=== PATIENT | male | born 1945 | race Caucasian/White ===

== ENCOUNTER → 2018-05-27 10:44 | Outpatient (CLI) | payer OTHER, MEDICARE, SELFPAY ==
--- NOTE | 2018-05-27 | DI.US.S_ITS ---
PROCEDURE: US ABD AORTA ANEURYSM SCREEN INDICATIONS: ABDOMINAL AORTIC ANEURYSM TECHNIQUE: Real time scanning was performed of the aorta and iliac arteries, with image documentation. COMPARISON: None. FINDINGS: Aorta: Proximal aortic diameter measures 2.7 cm. Mid-aorta measures 1.9 cm. Distal aortic diameter is 1.7 cm. Iliac arteries: Right common iliac artery measures 1.1 cm. Left common iliac artery measures 1.1 cm. IMPRESSION: No aneurysmal dilation Dictated by: Racheal Junior M.D. on 05/27/2018 at 13:58 Approved by: Racheal Junior M.D. on 05/27/2018 at 13:59
[2018-05-27 14:55] LABS: TSH w/ Reflex to FT4 1.88 uIU/mL (0.47-4.68)
[2018-05-27 16:26] LABS: Hep C Virus Ab w/Reflex Quant NEGATIVE s/c (NEGATIVE)
[2018-05-28 19:57] LABS: Testosterone, Free 0.79 ng/dL
== END ==
PROVIDERS: PCP Family Medicine; Visit Provider Family Medicine
DX: Z13.6 Encounter for screening for cardiovascular disorders (principal); Z11.59 Encounter for screening for other viral diseases; M62.89 Other specified disorders of muscle; N52.9 Male erectile dysfunction, unspecified
CPT/HCPCS: 36415; 76706; 84402; 84403; 84443; 86803

== ENCOUNTER → 2019-03-18 10:50 | Outpatient (CLI) | payer OTHER, SELFPAY ==
--- NOTE | 2019-03-18 | DI.MRI.S_ITS ---
PROCEDURE: MR LUMBAR SPINE WO CON INDICATIONS: Bilateral sciatica TECHNIQUE: Noncontrast sagittal T1 spin echo and T2 fast echo, sagittal STIR, axial T1 and T2 fast spin echo through the lumbar spine. In cases with scoliosis, additional coronal T2 fast spin echo may be performed. COMPARISON: None. FINDINGS: Image quality: Excellent. Alignment and Curvature: There is trace anterolisthesis of T12 on L1, trace retrolisthesis of L1 on L2, L2 on L3, L3 on L4. Bone Marrow: Marrow is of normal overall signal. Minimal reactive endplate changes are present at L2-3, L3-4, L4-5. Schmorl's nodes are noted along the inferior endplates of T11, T12, L2 and L4 with minimal surrounding reactive change at L4. No acute vertebral body compression fractures. Spinal Cord: Conus medullaris terminates at the L1-L2 level. Visualized cord demonstrates normal signal and size. Paraspinous Soft Tissues: No paravertebral masses. Discs: Severe desiccation is present at T12-L1, L1-L2, L2-L3 and moderate throughout the remainder of the lumbar spine. L1-L2: Mild disc bulge with posterior central superimposed protrusion. There is severe spinal stenosis and mild compression of the anterior canal. There is moderate to severe bilateral foraminal narrowing with facet and ligamentum flavum hypertrophy. L2-L3: Mild disc bulge with moderate to severe spinal stenosis. Severe left and moderate to severe right foraminal narrowing with facet and ligamentum flavum hypertrophy. L3-L4: Mild disc bulge with severe spinal stenosis and slight canal compression. There is severe left and moderate right foraminal narrowing with slight flattening of the left nerve root. Facet and ligamentum flavum hypertrophy as well as epidural lipomatosis is present. L4-L5: Mild disc bulge with severe spinal stenosis and flattening of canal. Moderate to severe bilateral foraminal narrowing with facet and ligamentum flavum hypertrophy. Epidural lipomatosis is present. L5-S1: Mild disc bulge with mild spinal stenosis. Moderate to severe left and moderate right foraminal narrowing with facet and ligamentum flavum hypertrophy. IMPRESSION: 1. Multilevel disc bulge including superimposed protrusion at L1-L2. 2. Multilevel spinal stenosis most severe at L3-4 and L4-5 secondary to disc bulge with intervening affective facet/ligamentum flavum arthropathy, epidural lipomatosis as well as retrolisthesis. 3. Multilevel moderate to severe foraminal narrowing secondary to facet/ligamentum flavum hypertrophy. Dictated by: Racheal Junior M.D. on 03/18/2019 at 14:17 Approved by: Racheal Junior M.D. on 03/18/2019 at 14:43
== END ==
PROVIDERS: PCP Family Medicine; Visit Provider Family Medicine
DX: M51.16 Intervertebral disc disorders with radiculopathy, lumbar region (principal); M51.17 Intervertebral disc disorders with radiculopathy, lumbosacral region; M48.061 Spinal stenosis, lumbar region without neurogenic claudication; M48.07 Spinal stenosis, lumbosacral region
CPT/HCPCS: 72148

== ENCOUNTER 2020-04-07 13:09 | Emergency (ER) | payer OTHER, MEDICARE, SELFPAY ==
[2020-04-07] VITALS (30 sets, daily range): BP systolic 119–170; BP diastolic 59–82; PULSE 95–135; RESP 18–39; TEMP 37.9–38.1; O2SAT 87–95; BMI 25.8
--- NOTE | 2020-04-07 13:20 | ED_ITS ---
HPI - Abdominal Pain <Telly Yancey DO - Last Filed: 04/08/20 14:25> General Chief Complaint: Abdominal Pain Stated Complaint: Stomach pain/vomitting/chills Time Seen by Provider: 04/07/20 13:10 Source: patient and family Mode of arrival: Ambulatory Limitations: no limitations History of Present Illness HPI narrative: 74-year-old male former smoker presents with his in the chief complaint severe epigastric pain with 1 episode of vomiting yesterday. He states the day prior he drank a fair amount of IPA and wonders of this triggered his pain. His pain is persistent but he has not vomited any more times. He denies any obvious provocation, palliation or radiation of his discomfort. He states that his last bowel movement was a day or 2 ago but was not normal and produced only small hard stools. Feels a bit bloated but admits to passing gas. He denies any abdominal surgeries. He denies any known history liver disease and has never had any bright red blood in his vomit. He denies any exposure to persons known to have COVID-19. MD complaint: abdominal pain Onset (ago): hour(s) Pain Consistency: constant Location: epigastric Severity: moderate Quality: stabbing Radiation: none Relieving factors: nothing Exacerbating factors: nothing Associated symptoms: nausea and vomiting Related Data Home Medications Medication Instructions Recorded Confirmed acitretin 25 mg PO DAILY 04/07/20 04/07/20 amlodipine 10 mg PO DAILY 04/07/20 04/07/20 aspirin [Adult Low Dose Aspirin] 81 mg PO DAILY 04/07/20 04/07/20 atorvastatin 40 mg PO BEDTIME 04/07/20 04/07/20 cilostazol 50 mg PO BID 04/07/20 04/07/20 clopidogrel 75 mg PO DAILY 04/07/20 04/07/20 coQ10 (ubiquinol) 200 mg PO DAILY 04/07/20 04/07/20 lisinopril 10 mg PO DAILY 04/07/20 04/07/20 omeprazole 20 mg PO DAILY 04/07/20 04/07/20 Allergies Allergy/AdvReac Type Severity Reaction Status Date / Time No Known Drug Allergies Allergy Verified 04/07/20 15:00 Review of Systems <DO Suzy Samson Last Filed: 04/08/20 14:25> Constitutional Constitutional: Denies chills, Denies fatigue, Denies fever(s), Denies frequent falls, Denies lethargy and Denies weakness Eyes Eyes: Denies change in vision, Denies eye discharge, Denies irritation and Denies loss of vision ENT Ears, Nose, Mouth, and Throat: Denies change in voice, Denies dizziness, Denies neck pain, Denies sore throat and Denies throat swelling Cardiovascular Cardiovascular: Denies chest pain, Denies irregular heart rhythm, Denies lightheadedness, Denies palpitations, Denies dyspnea, Denies dyspnea on exertion and Denies orthopnea Respiratory Respiratory: Denies cough, Denies dyspnea, Denies dyspnea on exertion and Denies wheezing Gastrointestinal Gastrointestinal: Reports abdominal pain, Denies change in bowel habits, Denies diarrhea, Reports nausea and Reports vomiting Musculoskeletal Musculoskeletal: Denies neck pain and Denies numbness Integumentary/Breasts Skin/Breast: Denies pruritus, Denies erythema, Denies rash and Denies wounds Neurologic Neurologic: Denies behavioral changes, Denies confusion, Denies dizziness, Denies frequent falls, Denies loss of vision, Denies numbness and Denies weakness Psychiatric Psychiatric: Denies anxiety, Denies behavioral changes, Denies confusion, Denies depression, Denies homicidal ideation and Denies suicidal ideation Endocrine Endocrine: Denies fatigue, Denies flushing and Denies palpitations Hematologic/Lymphatic Hematologic/Lymphatic: Denies easy bruising Allergic/Immunologic Allergic/Immunologic: Denies urticaria, Denies throat swelling and Denies wheezing Patient History <Telly Yancey DO - Last Filed: 04/08/20 14:25> Social History Smoking Status: Former smoker Smoking Status: Former smoker alcohol intake frequency: 0-2 drinks per day Substance Use Type: does not use Exam <Telly Yancey DO - Last Filed: 04/08/20 14:25> Narrative Exam Narrative: GENERAL: [74] year old patient appears stated age. Well-trevon shed, well-developed patient, in mild distress. HEAD: Atraumatic. Normocephalic. EYES: Pupils equal round and reactive. Extraocular motions intact. No scleral icterus. No injection or drainage. ENT: Nose without bleeding, purulent drainage. Throat without erythema, tonsillar hypertrophy or exudate. Airway patent. NECK: Trachea midline. Non tender CARDIOVASCULAR: Regular rate and rhythm without murmurs, gallops, or rubs. RESPIRATORY: Clear to auscultation. Breath sounds equal bilaterally. No wheezes, rales, or rhonchi. GASTROINTESTINAL: Abdomen soft, tender to palpation in the epigastrium, mild distension, decreased bowel sounds throughout EXTREMITIES: No edema or joint tenderness. BACK: Nontender without deformity or crepitance. No flank tenderness. NEURO: AOx3. SKIN: No rash or erythema of visible areas Initial Vital Signs Initial Vital Signs: Vital Signs Temperature 100.5 F H 04/07/20 13:20 Pulse Rate 135 H 04/07/20 13:20 Respiratory Rate 04/07/20 13:20 Blood Pressure 158/81 H 04/07/20 13:20 Pulse Oximetry 93 04/07/20 13:20 <Mil Staples MD - Last Filed: 04/08/20 18:05> Initial Vital Signs Initial Vital Signs: Vital Signs Temperature 100.5 F H 04/07/20 13:20 Pulse Rate 135 H 04/07/20 13:20 Respiratory Rate 04/07/20 13:20 Blood Pressure 158/81 H 04/07/20 13:20 Pulse Oximetry 93 04/07/20 13:20 Course <Telly Yancey DO - Last Filed: 04/08/20 14:25> Course Course Narrative: 1725 - patient having significant pain with oral contrast for small bowel follow through. Ingestion stopped. Dr. Vasquez called down and after reviewing CT, rising lactate, and response to oral contrast that he is likely having consequences related to severe PAD and he will in fact now be needing transfer. Patient info and images sent to given his history there. 04/08/2020 1310: Patient continues to rest comfortably. EMS Transport to arrive at 1430 for transport to under the care of previously noted provider. EMTALA papers completed. Patient and have complete understanding and agreement with the plan. Orders Ordered: ED Orders 04/08/20 12:05 PTT [Partial Thromboplastin Time] Stat 04/08/20 12:14 CMP [Comprehensive Metabolic Panel] Stat Complete Blood Count AUTO DIFF Stat Lactate (Lactic Acid) Stat Discontinued Medications Heparin Sodium (Porcine) (Heparin) 6,000 unit 80 unit/kg (6000 unit) IV NOW ONE Stop: 04/07/20 18:14 Last Admin: 04/07/20 19:04 Dose: 6,000 unit Documented by: JIMI Hydromorphone HCl (Dilaudid) 0.5 mg IV NOW ONE Stop: 04/08/20 01:00 Last Admin: 04/08/20 01:22 Dose: 0.5 mg Documented by: IRAIDA Sodium Chloride (Normal Saline 0.9%) 1,000 mls @ 1,000 mls/hr IV BOLUS ONE Stop: 04/07/20 14:19 Last Infusion: 04/07/20 15:50 Dose: 0 mls/hr Documented by: Admin: 04/07/20 13:29 Dose: 1,000 mls/hr Documented by: JOSUE Levofloxacin (Levaquin) 500 mg in 100 mls @ 100 mls/hr IV NOW ONE Stop: 04/07/20 14:40 Last Admin: 04/07/20 14:00 Dose: Not Given Documented by: CARLA Sodium Chloride (Normal Saline 0.9%) 1,983 mls @ 661 mls/hr 30 ml/kg infuse over 3 hr (1983 ml) IV NOW ONE Stop: 04/07/20 16:40 Last Infusion: 04/07/20 18:01 Dose: 0 mls/hr Documented by: Admin: 04/07/20 14:10 Dose: 661 mls/hr Documented by: JIMI Piperacillin/Tazobactam/Dextrose (Zosyn) 3.375 gm in 50 mls @ 100 mls/hr IV NOW ONE Stop: 04/07/20 14:28 Last Infusion: 04/07/20 14:45 Dose: 0 mls/hr Documented by: Admin: 04/07/20 14:30 Dose: 100 mls/hr Documented by: JIMI Heparin Sodium/Dextrose (Heparin Drip) 25,000 unit in 500 mls @ 26.943 mls/hr IV CONT LISA; Protocol Last Titration: 04/08/20 14:50 Dose: 10.69 units/kg/hr, 16 mls/hr Documented by: [email or web address] Titration: 04/08/20 12:34 Dose: 10.69 units/kg/hr, 16 mls/hr Documented by: Titration: 04/08/20 07:46 Dose: 10.69 units/kg/hr, 16 mls/hr Documented by: Titration: 04/08/20 06:41 Dose: 0 units/kg/hr, 0 mls/hr Documented by: Titration: 04/08/20 02:38 Dose: 13.36 units/kg/hr, 20 mls/hr Documented by: Titration: 04/08/20 02:37 Dose: 20 units/kg/hr, 29.937 mls/hr Documented by: Titration: 04/08/20 01:34 Dose: 0 units/kg/hr, 0 mls/hr Documented by: Admin: 04/07/20 19:07 Dose: 18 units/kg/hr, 26.943 mls/hr Documented by: JIMI Sodium Chloride (Normal Saline 0.9%) 1,000 mls @ 100 mls/hr IV CONT [facility] Last Infusion: 04/08/20 14:50 Dose: 100 mls/hr Documented by: Admin: 04/08/20 01:23 Dose: 100 mls/hr Documented by: IRAIDA Morphine Sulfate (Morphine) 4 mg IV Q4HR PRN PRN Reason: Pain, Severe (7-10) Last Admin: 04/08/20 12:51 Dose: 4 mg Documented by: Admin: 04/07/20 17:07 Dose: 4 mg Documented by: JIMI Morphine Sulfate (Morphine) 2 mg IV NOW ONE Stop: 04/08/20 14:53 Last Admin: 04/08/20 14:55 Dose: 2 mg Documented by: KATLIN Pantoprazole Sodium (Protonix) 40 mg IV NOW ONE Stop: 04/07/20 13:21 Last Admin: 04/07/20 13:28 Dose: 40 mg Documented by: JOSUE Pantoprazole Sodium (Protonix) 40 mg IV BID [facility] Last Admin: 04/08/20 09:55 Dose: 40 mg Documented by: Admin: 04/07/20 22:24 Dose: 40 mg Documented by: JIMI Vital Signs Vital signs: Vital Signs - 8 hr 04/08/20 10:30 04/08/20 11:00 04/08/20 11:01 Pulse Rate 65 64 62 Respiratory Rate 24 20 17 Blood Pressure 122/59 L 139/65 Pulse Oximetry 96 98 97 04/08/20 11:30 04/08/20 12:00 04/08/20 12:30 Pulse Rate 66 65 63 Respiratory Rate 32 H 27 H 26 H Blood Pressure 161/72 H 150/70 H Pulse Oximetry 97 97 98 04/08/20 12:31 04/08/20 12:35 04/08/20 13:00 Pulse Rate 63 64 Respiratory Rate 24 14 17 Blood Pressure 158/69 H 138/68 Pulse Oximetry 97 97 92 04/08/20 13:06 04/08/20 13:30 04/08/20 14:00 Pulse Rate 62 58 L 64 Respiratory Rate 24 18 23 Blood Pressure 134/68 138/66 131/68 Pulse Oximetry 95 98 97 04/08/20 14:30 04/08/20 14:31 Pulse Rate 61 60 Respiratory Rate 24 20 Blood Pressure 146/66 H Pulse Oximetry 95 97 <Mil Staples MD - Last Filed: 04/08/20 18:05> Course Course Narrative: Time 7:56 p.m.. Spoke with [facility] transfer center. Awaiting call back from general surgeon. Decision to Admit Date: 04/07/20 Decision to Admit time: 18:00 Additional Information: Sign-out from dr yancey at 1800... General surgery at this hospital as seen patient. Both agreed that patient needs possible in terventional radiology versus vascular surgery. Awaiting call back from the [facility] as patient has been evaluated by former vascular surgeon there. Orders Ordered: ED Orders 04/08/20 12:05 PTT [Partial Thromboplastin Time] Stat 04/08/20 12:14 CMP [Comprehensive Metabolic Panel] Stat Complete Blood Count AUTO DIFF Stat Lactate (Lactic Acid) Stat Discontinued Medications Heparin Sodium (Porcine) (Heparin) 6,000 unit 80 unit/kg (6000 unit) IV NOW ONE Stop: 04/07/20 18:14 Last Admin: 04/07/20 19:04 Dose: 6,000 unit Documented by: JIMI Hydromorphone HCl (Dilaudid) 0.5 mg IV NOW ONE Stop: 04/08/20 01:00 Last Admin: 04/08/20 01:22 Dose: 0.5 mg Documented by: IRAIDA Sodium Chloride (Normal Saline 0.9%) 1,000 mls @ 1,000 mls/hr IV BOLUS ONE Stop: 04/07/20 14:19 Last Infusion: 04/07/20 15:50 Dose: 0 mls/hr Documented by: Admin: 04/07/20 13:29 Dose: 1,000 mls/hr Documented by: JOSUE Levofloxacin (Levaquin) 500 mg in 100 mls @ 100 mls/hr IV NOW ONE Stop: 04/07/20 14:40 Last Admin: 04/07/20 14:00 Dose: Not Given Documented by: CHIDIM Sodium Chloride (Normal Saline 0.9%) 1,983 mls @ 661 mls/hr 30 ml/kg infuse over 3 hr (1983 ml) IV NOW ONE Stop: 04/07/20 16:40 Last Infusion: 04/07/20 18:01 Dose: 0 mls/hr Documented by: Admin: 04/07/20 14:10 Dose: 661 mls/hr Documented by: JIMI Piperacillin/Tazobactam/Dextrose (Zosyn) 3.375 gm in 50 mls @ 100 mls/hr IV NOW ONE Stop: 04/07/20 14:28 Last Infusion: 04/07/20 14:45 Dose: 0 mls/hr Documented by: Admin: 04/07/20 14:30 Dose: 100 mls/hr Documented by: JIMI Heparin Sodium/Dextrose (Heparin Drip) 25,000 unit in 500 mls @ 26.943 mls/hr IV CONT LISA; Protocol Last Titration: 04/08/20 14:50 Dose: 10.69 units/kg/hr, 16 mls/hr Documented by: Titration: 04/08/20 12:34 Dose: 10.69 units/kg/hr, 16 mls/hr Documented by: Titration: 04/08/20 07:46 Dose: 10.69 units/kg/hr, 16 mls/hr Documented by: Titration: 04/08/20 06:41 Dose: 0 units/kg/hr, 0 mls/hr Documented by: Titration: 04/08/20 02:38 Dose: 13.36 units/kg/hr, 20 mls/hr Documented by: Titration: 04/08/20 02:37 Dose: 20 units/kg/hr, 29.937 mls/hr Documented by: Titration: 04/08/20 01:34 Dose: 0 units/kg/hr, 0 mls/hr Documented by: Admin: 04/07/20 19:07 Dose: 18 units/kg/hr, 26.943 mls/hr Documented by: JIMI Sodium Chloride (Normal Saline 0.9%) 1,000 mls @ 100 mls/hr IV CONT [facility] Last Infusion: 04/08/20 14:50 Dose: 100 mls/hr Documented by: Admin: 04/08/20 01:23 Dose: 100 mls/hr Documented by: IRAIDA Morphine Sulfate (Morphine) 4 mg IV Q4HR PRN PRN Reason: Pain, Severe (7-10) Last Admin: 04/08/20 12:51 Dose: 4 mg Documented by: Admin: 04/07/20 17:07 Dose: 4 mg Documented by: JIMI Morphine Sulfate (Morphine) 2 mg IV NOW ONE Stop: 04/08/20 14:53 Last Admin: 04/08/20 14:55 Dose: 2 mg Documented by: KATLIN Pantoprazole Sodium (Protonix) 40 mg IV NOW ONE Stop: 04/07/20 13:21 Last Admin: 04/07/20 13:28 Dose: 40 mg Documented by: JOSUE Pantoprazole Sodium (Protonix) 40 mg IV BID [facility] Last Admin: 04/08/20 09:55 Dose: 40 mg Documented by: Admin: 04/07/20 22:24 Dose: 40 mg Documented by: JIMI Reevaluation(s) Reevaluation #1: Patient pain controlled at this time. Patient and aware waiting for call back from [facility]. They desire continuity of care as they have been there before for peripheral artery disease workup by former vascular surgeon Time: 19:57 Consultations Consultation #1: Spoke with the [facility] general surgery dr blackwood, at this time no surgical intervention. He has reviewed the CT scan. He feels patient should be admitted to General Medicine. Time: 21:25 Consultation #2: Spoke with [facility] general Medicine, Dr. Henriquez, he will accept patient however patient will not get a bed until the morning. Call back if any changes or patient becomes toxic or decompensates Time: 21:42 Consultation #3: Spoke with Dr. Henriquez, informed him elevated white count, improved lactic acid. At this time hemodynamically stable. No changes in transferring patient until in the morning requested by him Time: 01:57 Additional Consultation(s): Time 6:00 p.m., spoke with dr yancey, awaiting call back from for continuity care. General surgery/IR/vascular surgery for transfer Vital Signs Vital signs: Vital Signs - 8 hr 04/08/20 10:30 04/08/20 11:00 04/08/20 11:01 Pulse Rate 65 64 62 Respiratory Rate 24 20 17 Blood Pressure 122/59 L 139/65 Pulse Oximetry 96 98 97 04/08/20 11:30 04/08/20 12:00 04/08/20 12:30 Pulse Rate 66 65 63 Respiratory Rate 32 H 27 H 26 H Blood Pressure 161/72 H 150/70 H Pulse Oximetry 97 97 98 04/08/20 12:31 04/08/20 12:35 04/08/20 13:00 Pulse Rate 63 64 Respiratory Rate 24 14 17 Blood Pressure 158/69 H 138/68 Pulse Oximetry 97 97 92 04/08/20 13:06 04/08/20 13:30 04/08/20 14:00 Pulse Rate 62 58 L 64 Respiratory Rate 24 18 23 Blood Pressure 134/68 138/66 131/68 Pulse Oximetry 95 98 97 04/08/20 14:30 04/08/20 14:31 Pulse Rate 61 60 Respiratory Rate 24 20 Blood Pressure 146/66 H Pulse Oximetry 95 97 MDM - Abdominal Pain <Telly Yancey, DO - Last Filed: 04/08/20 14:25> Lab Data Result diagrams: 04/08/20 12:14 04/08/20 12:14 Labs: Lab Results 04/07/20 04/07/20 04/07/20 Range/Units 13:00 13:00 13:00 WBC 25.2 H (4.5-11.0) X10^3/uL RBC 4.98 (4.5-5.9) X10^6/uL Hgb 15.7 (13.5-17.5) g/dL Hct 47.2 (41-53) % MCV 94.7 (80-100) fL MCH 31.4 (26-34) PG MCHC 33.2 (30-36) % RDW 13.4 (11.6-14.8) % Plt Count 238 (150-400) X10^3/uL Neut % (Auto) Not Reportable Lymph % (Auto) Not Reportable [place] % (Auto) Not Reportable Eos % (Auto) Not Reportable Baso % (Auto) Not Reportable Lymph # (Auto) Not Reportable [place] # (Auto) Not Reportable Baso # (Auto) Not Reportable Total Counted 100 Seg Neutrophils % 61.0 (38-70) % Band Neutrophils % 28.0 H (3-7) % Lymphocytes % (Manual) 2.0 L (25-45) % Atypical Lymphs % 1.0 H ( - 0) % Monocytes % (Manual) 8.0 (2-11) % Neutrophils # (Manual) 46448 H (0447-8252) /uL RBC Morphology Normal morphology PT (10.1-12.7) SECONDS INR (0.9-1.3) APTT Sodium 133 L (137-145) mmol/L Potassium 3.9 (3.4-5.1) mmol/L Chloride 96 L (98-107) mmol/L Carbon Dioxide 27 (22-32) mmol/L BUN 12 (9-20) mg/dL Creatinine 0.56 L (0.66-1.25) mg/dL Estimated GFR > 60.0 (>60) mL/min BUN/Creatinine Ratio 21.4 (6-22) Glucose 125 H (80-110) mg/dL Lactate 2.2 H (0.7-2.1) mmol/L Calcium 9.3 (8.4-10.2) mg/dL Total Bilirubin 1.8 H (0.2-1.3) mg/dL AST 49 (17-59) IU/L ALT 42 (<50) IU/L Alkaline Phosphatase 82 (38-126) U/L Total Creatine Kinase 74 (55-170) U/L CK-MB (CK-2) TNP CK-MB (CK-2) Rel Index TNP Troponin I < 0.012 (0.01-0.034) ng/mL Total Protein 8.5 H (6.3-8.2) g/dL Albumin 4.7 (3.5-5.0) g/dL Globulin 3.8 (1.7-4.1) g/dL Albumin/Globulin Ratio 1.2 (1.0-2.8) Lipase 27 (23-300) U/L COVID-19 PCR (Negative) 04/07/20 04/07/20 04/07/20 Range/Units 14:30 15:42 19:45 WBC (4.5-11.0) X10^3/uL RBC (4.5-5.9) X10^6/uL Hgb (13.5-17.5) g/dL Hct (41-53) % MCV (80-100) fL MCH (26-34) PG MCHC (30-36) % RDW (11.6-14.8) % Plt Count (150-400) X10^3/uL Neut % (Auto) Lymph % (Auto) [place] % (Auto) Eos % (Auto) Baso % (Auto) Lymph # (Auto) [place] # (Auto) Baso # (Auto) Total Counted Seg Neutrophils % (38-70) % Band Neutrophils % (3-7) % Lymphocytes % (Manual) (25-45) % Atypical Lymphs % ( - 0) % Monocytes % (Manual) (2-11) % Neutrophils # (Manual) (1306-0753) /uL RBC Morphology PT 17.7 H (10.1-12.7) SECONDS INR 1.5 H (0.9-1.3) APTT Cancelled Sodium (137-145) mmol/L Potassium (3.4-5.1) mmol/L Chloride (98-107) mmol/L Carbon Dioxide (22-32) mmol/L BUN (9-20) mg/dL Creatinine (0.66-1.25) mg/dL Estimated GFR (>60) mL/min BUN/Creatinine Ratio (6-22) Glucose (80-110) mg/dL Lactate 2.5 H (0.7-2.1) mmol/L Calcium (8.4-10.2) mg/dL Total Bilirubin (0.2-1.3) mg/dL AST (17-59) IU/L ALT (<50) IU/L Alkaline Phosphatase (38-126) U/L Total Creatine Kinase (55-170) U/L CK-MB (CK-2) CK-MB (CK-2) Rel Index Troponin I (0.01-0.034) ng/mL Total Protein (6.3-8.2) g/dL Albumin (3.5-5.0) g/dL Globulin (1.7-4.1) g/dL Albumin/Globulin Ratio (1.0-2.8) Lipase (23-300) U/L COVID-19 PCR Negative (Negative) 04/08/20 04/08/20 04/08/20 Range/Units 00:58 00:58 00:58 WBC 34.8 H* (4.5-11.0) X10^3/uL RBC 4.81 (4.5-5.9) X10^6/uL Hgb 15.0 (13.5-17.5) g/dL Hct 45.6 (41-53) % MCV 94.9 (80-100) fL MCH 31.3 (26-34) PG MCHC 33.0 (30-36) % RDW 13.4 (11.6-14.8) % Plt Count 189 (150-400) X10^3/uL Neut % (Auto) Not Reportable Lymph % (Auto) Not Reportable [place] % (Auto) Not Reportable Eos % (Auto) Not Reportable Baso % (Auto) Not Reportable Lymph # (Auto) Not Reportable [place] # (Auto) Not Reportable Baso # (Auto) Not Reportable Total Counted 100 Seg Neutrophils % 82.0 H (38-70) % Band Neutrophils % 10.0 H (3-7) % Lymphocytes % (Manual) 4.0 L (25-45) % Atypical Lymphs % ( - 0) % Monocytes % (Manual) 4.0 (2-11) % Neutrophils # (Manual) 31829 H (1276-6957) /uL RBC Morphology Normal morphology PT (10.1-12.7) SECONDS INR (0.9-1.3) APTT > 400 H* Sodium 138 (137-145) mmol/L Potassium 3.3 L (3.4-5.1) mmol/L Chloride 102 (98-107) mmol/L Carbon Dioxide 28 (22-32) mmol/L BUN 12 (9-20) mg/dL Creatinine 0.59 L (0.66-1.25) mg/dL Estimated GFR > 60.0 (>60) mL/min BUN/Creatinine Ratio 20.3 (6-22) Glucose 176 H (80-110) mg/dL Lactate (0.7-2.1) mmol/L Calcium 8.7 (8.4-10.2) mg/dL Total Bilirubin 1.8 H (0.2-1.3) mg/dL AST 35 (17-59) IU/L ALT 34 (<50) IU/L Alkaline Phosphatase 68 (38-126) U/L Total Creatine Kinase (55-170) U/L CK-MB (CK-2) CK-MB (CK-2) Rel Index Troponin I (0.01-0.034) ng/mL Total Protein 7.4 (6.3-8.2) g/dL Albumin 4.0 (3.5-5.0) g/dL Globulin 3.4 (1.7-4.1) g/dL Albumin/Globulin Ratio 1.2 (1.0-2.8) Lipase (23-300) U/L COVID-19 PCR (Negative) 04/08/20 04/08/20 04/08/20 Range/Units 00:58 06:03 06:03 WBC 34.0 H* (4.5-11.0) X10^3/uL RBC 4.83 (4.5-5.9) X10^6/uL Hgb 15.3 (13.5-17.5) g/dL Hct 46.0 (41-53) % MCV 95.2 (80-100) fL MCH 31.7 (26-34) PG MCHC 33.3 (30-36) % RDW 13.5 (11.6-14.8) % Plt Count 183 (150-400) X10^3/uL Neut % (Auto) Not Reportable Lymph % (Auto) Not Reportable [place] % (Auto) Not Reportable Eos % (Auto) Not Reportable Baso % (Auto) Not Reportable Lymph # (Auto) Not Reportable [place] # (Auto) Not Reportable Baso # (Auto) Not Reportable Total Counted 100 Seg Neutrophils % 81.0 H (38-70) % Band Neutrophils % 13.0 H (3-7) % Lymphocytes % (Manual) 3.0 L (25-45) % Atypical Lymphs % ( - 0) % Monocytes % (Manual) 3.0 (2-11) % Neutrophils # (Manual) 39445 H (9186-4928) /uL RBC Morphology Normal morphology PT (10.1-12.7) SECONDS INR (0.9-1.3) APTT Sodium 140 (137-145) mmol/L Potassium 3.6 (3.4-5.1) mmol/L Chloride 104 (98-107) mmol/L Carbon Dioxide 28 (22-32) mmol/L BUN 14 (9-20) mg/dL Creatinine 0.61 L (0.66-1.25) mg/dL Estimated GFR > 60.0 (>60) mL/min BUN/Creatinine Ratio 23.0 H (6-22) Glucose 152 H (80-110) mg/dL Lactate 1.8 (0.7-2.1) mmol/L Calcium 8.6 (8.4-10.2) mg/dL Total Bilirubin 1.5 H (0.2-1.3) mg/dL AST 37 (17-59) IU/L ALT 33 (<50) IU/L Alkaline Phosphatase 65 (38-126) U/L Total Creatine Kinase (55-170) U/L CK-MB (CK-2) CK-MB (CK-2) Rel Index Troponin I (0.01-0.034) ng/mL Total Protein 7.3 (6.3-8.2) g/dL Albumin 3.9 (3.5-5.0) g/dL Globulin 3.4 (1.7-4.1) g/dL Albumin/Globulin Ratio 1.1 (1.0-2.8) Lipase (23-300) U/L COVID-19 PCR (Negative) 04/08/20 04/08/20 04/08/20 Range/Units 06:03 06:03 12:05 WBC (4.5-11.0) X10^3/uL RBC (4.5-5.9) X10^6/uL Hgb (13.5-17.5) g/dL Hct (41-53) % MCV (80-100) fL MCH (26-34) PG MCHC (30-36) % RDW (11.6-14.8) % Plt Count (150-400) X10^3/uL Neut % (Auto) Lymph % (Auto) [place] % (Auto) Eos % (Auto) Baso % (Auto) Lymph # (Auto) [place] # (Auto) Baso # (Auto) Total Counted Seg Neutrophils % (38-70) % Band Neutrophils % (3-7) % Lymphocytes % (Manual) (25-45) % Atypical Lymphs % ( - 0) % Monocytes % (Manual) (2-11) % Neutrophils # (Manual) (4024-0590) /uL RBC Morphology PT (10.1-12.7) SECONDS INR (0.9-1.3) APTT > 140 H* D 80 H* D Sodium (137-145) mmol/L Potassium (3.4-5.1) mmol/L Chloride (98-107) mmol/L Carbon Dioxide (22-32) mmol/L BUN (9-20) mg/dL Creatinine (0.66-1.25) mg/dL Estimated GFR (>60) mL/min BUN/Creatinine Ratio (6-22) Glucose (80-110) mg/dL Lactate 1.9 (0.7-2.1) mmol/L Calcium (8.4-10.2) mg/dL Total Bilirubin (0.2-1.3) mg/dL AST (17-59) IU/L ALT (<50) IU/L Alkaline Phosphatase (38-126) U/L Total Creatine Kinase (55-170) U/L CK-MB (CK-2) CK-MB (CK-2) Rel Index Troponin I (0.01-0.034) ng/mL Total Protein (6.3-8.2) g/dL Albumin (3.5-5.0) g/dL Globulin (1.7-4.1) g/dL Albumin/Globulin Ratio (1.0-2.8) Lipase (23-300) U/L COVID-19 PCR (Negative) 04/08/20 04/08/20 04/08/20 Range/Units 12:14 12:14 12:14 WBC 27.9 H (4.5-11.0) X10^3/uL RBC 4.37 L (4.5-5.9) X10^6/uL Hgb 13.7 (13.5-17.5) g/dL Hct 41.7 (41-53) % MCV 95.4 (80-100) fL MCH 31.4 (26-34) PG MCHC 32.9 (30-36) % RDW 13.4 (11.6-14.8) % Plt Count 192 (150-400) X10^3/uL Neut % (Auto) Not Reportable Lymph % (Auto) Not Reportable [place] % (Auto) Not Reportable Eos % (Auto) Not Reportable Baso % (Auto) Not Reportable Lymph # (Auto) Not Reportable [place] # (Auto) Not Reportable Baso # (Auto) Not Reportable Total Counted 100 Seg Neutrophils % 84.0 H (38-70) % Band Neutrophils % 8.0 H (3-7) % Lymphocytes % (Manual) 6.0 L (25-45) % Atypical Lymphs % ( - 0) % Monocytes % (Manual) 2.0 (2-11) % Neutrophils # (Manual) 77337 H (1539-4123) /uL RBC Morphology Normal morphology PT (10.1-12.7) SECONDS INR (0.9-1.3) APTT Sodium 139 (137-145) mmol/L Potassium 4.0 (3.4-5.1) mmol/L Chloride 106 (98-107) mmol/L Carbon Dioxide 27 (22-32) mmol/L BUN 16 (9-20) mg/dL Creatinine 0.55 L (0.66-1.25) mg/dL Estimated GFR > 60.0 (>60) mL/min BUN/Creatinine Ratio 29.1 H (6-22) Glucose 112 H (80-110) mg/dL Lactate 1.4 (0.7-2.1) mmol/L Calcium 8.4 (8.4-10.2) mg/dL Total Bilirubin 1.5 H (0.2-1.3) mg/dL AST 45 (17-59) IU/L ALT 30 (<50) IU/L Alkaline Phosphatase 46 (38-126) U/L Total Creatine Kinase (55-170) U/L CK-MB (CK-2) CK-MB (CK-2) Rel Index Troponin I (0.01-0.034) ng/mL Total Protein 7.0 (6.3-8.2) g/dL Albumin 3.7 (3.5-5.0) g/dL Globulin 3.3 (1.7-4.1) g/dL Albumin/Globulin Ratio 1.1 (1.0-2.8) Lipase (23-300) U/L COVID-19 PCR (Negative) Point of care testing: Urine Dip Bedside Urine Glucose Negative Bedside Urine Bilirubin - Negative Bedside Urine Ketone - Negative Urine Specific Copper Center 1.015 Bedside Urine Occult Blood +/- Bedside Urine pH 6.5 Bedside Urine Protein - Negative Bedside Urine Urobilinogen - Negative Bedside Urine Nitrite - Negative Bedside Urine Leukocytes - Negative Esterase Imaging Data Abdominal x-ray: Radiologist's Impression: Chart Viewer Diagnostics DATE TYPE STATUS REF RANGE/AUTHOR Hx 04/07/20 13:58 04/07/20 13:21 Tejas Galindo 03/18/19 00:00 Racheal Junior 05/27/18 00:00 Racheal Junior Mark L 74, M[address] [facility], [facility] R10 170.18cm 74.843kg BMI: 25.8kg/m? Abdominal Pain Search Chart No Data to Display No Data to Display No Data to Display Today 14:00 CamronNicolas 74 M 1945 [place] [address] XRay Report Signed Patient: Nicolas Lyon LMR#: [id number] : 8Acct:[id number] Age/Sex: 74 / MDate of Service: 04/07/20 Loc: ED Accession Number: [id number] Procedure: XR acute abdomen series Ordering Provider: Telly Yancey D.O. PROCEDURE: XR ACUTE ABDOMEN SERIES INDICATIONS: Abdominal pain, N/V TECHNIQUE: One view chest and two views of the abdomen were acquired. COMPARISON: None. FINDINGS: Surgical changes and devices: Postoperative clips are seen involving the right inferior neck. Chest: An incomplete inspiratory result is noted, causing a crowded appearance to the lung markings. No focal infiltrates are seen. No pneumothorax or significant pleural effusions are seen. The cardiac contours are within normal limits. The aorta demonstrates calcification and tortuosity. Abdomen: Bowel gas pattern is normal. No suspicious calcifications. Visualized solid organ contours appear normal. Bones: Age-appropriate bony degenerative changes are seen. Mild levoconvex scoliotic curvature is noted. IMPRESSION: A nonobstructive bowel gas pattern is seen. As clinically appropriate, please consider a repeat plain film study or a dedicated CT of the abdomen and pelvis, if the patient's symptoms persist or worsen. Low lung volumes. Dictated by: Tejas Galindo M.D. on 04/07/2020 at 13:04 Approved by: Tejas Galindo M.D. on 04/07/2020 at 13:05 CT scan - abdomen/pelvis: Radiologist's Impression: Chart Viewer Diagnostics DATE TYPE STATUS REF RANGE/AUTHOR Hx 04/07/20 13:58 Tejas Galindo 04/07/20 13:21 Tejas Galindo 03/18/19 00:00 Racheal Junior 05/27/18 00:00 Racheal Junior Mark L 74, M1945 [facility] ED R10 170.18cm 74.843kg BMI: 25.8kg/m? Search Chart No Data to Display No Data to Display Today 14:53 CamronNicolas Ravi 74 M 1945 [place] [address] CT Scan Report Signed Patient: OgemawNicolas alejandra LMR#: [id number] : 8Acct:[id number] Age/Sex: 74 / MDate of Service: 04/07/20 Loc: ED Accession Number: [id number] Procedure: CT abdomen pelvis w con Ordering Provider: Telly Yancey D.O. PROCEDURE: CT ABDOMEN PELVIS W CON INDICATIONS: severe epigastric pain, elevated WBC, lactate, vomiting TECHNIQUE: After the administration of intravenous contrast, 5 mm thick sections acquired from the diaphragm to the symphysis. 5 mm coronal and sagittal reformats were acquired. For radiation dose reduction, the following was used: automated exposure control, adjustment of mA and/or kV according to patient size. COMPARISON: [facility], MR, MR LUMBAR SPINE WO CON, 03/18/2019, 11:04. [facility], CR, XR ACUTE ABDOMEN SERIES, 04/07/2020, 13:30. FINDINGS: Image quality: Excellent. ABDOMEN: Lung bases: Lung bases are clear. Heart size is normal. There is a small to moderate hiatal hernia. Coronary artery calcifications are seen. Solid organs: Liver is normal in size and enhancement. Diffuse fatty liver infiltration is noted. Gallbladder wall is not thickened. Biliary system is non dilated. Pancreas enhances normally. Spleen is normal in size and enhancement. There is a right adrenal nodule seen involving the lateral limb, which measures 2.1 cm and measures 55 Hounsfield units, as on series 2, image 20. No left adrenal nodules. Kidneys demonstrate normal size and enhancement, without hydronephrosis. Peritoneum and bowel: A prominent common gas distended colon is seen, which measures up to 6 cm. There is a transition point seen within the descending colon, yet without mass or significant wall thickening to suggest pathology at this site. No pneumatosis is seen. There is focal wall thickening with irregularity seen involving the cecum. No dilated loops of small bowel are seen. No free fluid or air. Colonic diverticulosis is seen, without findings of active diverticulitis. A normal appendix is incidentally noted. Nodes and vessels: No retroperitoneal or mesenteric adenopathy by size criteria. Aorta and inferior vena cava are normal in size. Prominent aortic calcification is seen including involving the abdominal branches. There is prominent calcification seen involving the SMA, with likely 90% stenosis. However, flow can be seen within it. Prominent calcification is also seen involving iliac system. Miscellaneous: A mild periumbilical hernia is seen, containing fat. PELVIS: Genitourinary: Bladder wall thickness is normal. The prostate is prominent, measuring 5.7 cm transversely. Miscellaneous: No enlarged inguinal or pelvic lymph nodes are seen. There is a fat-containing left inguinal hernia seen. Bones: No suspicious bony lesions. No vertebral body compression fractures. Moderate levoconvex thoracolumbar scoliosis is seen. IMPRESSION: Prominent, gas distended colon, without a cause of obstruction seen. No pneumatosis is seen. In this patient with advanced coronary artery calcifica tion and the given history, please consider ischemic colitis. The SMA demonstrates a prominent stenosis proximally, yet flow can be seen within it. If clinically appropriate, please consider short-term follow-up. Focal wall thickening is seen involving the cecum. In a patient of this age, please consider colonoscopy to evaluate for a potential underlying mass, if not already recently done. A small to moderate hiatal hernia is seen. Incidental note is made of: Generalized artery calcification Fatty liver infiltration Moderate levoconvex scoliosis Fat containing periumbilical hernia Normal appendix Diverticulosis, without active diverticulitis Prominent prostate Small fat containing left inguinal hernia Dictated by: Tejas Galindo M.D. on 04/07/2020 at 13:41 Approved by: Tejas Galindo M.D. on 04/07/2020 at 13:50 <Mil Staples MD - Last Filed: 04/08/20 18:05> Lab Data Labs: Lab Results 04/07/20 04/07/20 04/07/20 Range/Units 13:00 13:00 13:00 WBC 25.2 H (4.5-11.0) X10^3/uL RBC 4.98 (4.5-5.9) X10^6/uL Hgb 15.7 (13.5-17.5) g/dL Hct 47.2 (41-53) % MCV 94.7 (80-100) fL MCH 31.4 (26-34) PG MCHC 33.2 (30-36) % RDW 13.4 (11.6-14.8) % Plt Count 238 (150-400) X10^3/uL Neut % (Auto) Not Reportable Lymph % (Auto) Not Reportable [place] % (Auto) Not Reportable Eos % (Auto) Not Reportable Baso % (Auto) Not Reportable Lymph # (Auto) Not Reportable [place] # (Auto) Not Reportable Baso # (Auto) Not Reportable Total Counted 100 Seg Neutrophils % 61.0 (38-70) % Band Neutrophils % 28.0 H (3-7) % Lymphocytes % (Manual) 2.0 L (25-45) % Atypical Lymphs % 1.0 H ( - 0) % Monocytes % (Manual) 8.0 (2-11) % Neutrophils # (Manual) 19163 H (3653-4567) /uL RBC Morphology Normal morphology PT (10.1-12.7) SECONDS INR (0.9-1.3) APTT Sodium 133 L (137-145) mmol/L Potassium 3.9 (3.4-5.1) mmol/L Chloride 96 L (98-107) mmol/L Carbon Dioxide 27 (22-32) mmol/L BUN 12 (9-20) mg/dL Creatinine 0.56 L (0.66-1.25) mg/dL Estimated GFR > 60.0 (>60) mL/min BUN/Creatinine Ratio 21.4 (6-22) Glucose 125 H (80-110) mg/dL Lactate 2.2 H (0.7-2.1) mmol/L Calcium 9.3 (8.4-10.2) mg/dL Total Bilirubin 1.8 H (0.2-1.3) mg/dL AST 49 (17-59) IU/L ALT 42 (<50) IU/L Alkaline Phosphatase 82 (38-126) U/L Total Creatine Kinase 74 (55-170) U/L CK-MB (CK-2) TNP CK-MB (CK-2) Rel Index TNP Troponin I < 0.012 (0.01-0.034) ng/mL Total Protein 8.5 H (6.3-8.2) g/dL Albumin 4.7 (3.5-5.0) g/dL Globulin 3.8 (1.7-4.1) g/dL Albumin/Globulin Ratio 1.2 (1.0-2.8) Lipase 27 (23-300) U/L COVID-19 PCR (Negative) 04/07/20 04/07/20 04/07/20 Range/Units 14:30 15:42 19:45 WBC (4.5-11.0) X10^3/uL RBC (4.5-5.9) X10^6/uL Hgb (13.5-17.5) g/dL Hct (41-53) % MCV (80-100) fL MCH (26-34) PG MCHC (30-36) % RDW (11.6-14.8) % Plt Count (150-400) X10^3/uL Neut % (Auto) Lymph % (Auto) [place] % (Auto) Eos % (Auto) Baso % (Auto) Lymph # (Auto) [place] # (Auto) Baso # (Auto) Total Counted Seg Neutrophils % (38-70) % Band Neutrophils % (3-7) % Lymphocytes % (Manual) (25-45) % Atypical Lymphs % ( - 0) % Monocytes % (Manual) (2-11) % Neutrophils # (Manual) (7795-3441) /uL RBC Morphology PT 17.7 H (10.1-12.7) SECONDS INR 1.5 H (0.9-1.3) APTT Cancelled Sodium (137-145) mmol/L Potassium (3.4-5.1) mmol/L Chloride (98-107) mmol/L Carbon Dioxide (22-32) mmol/L BUN (9-20) mg/dL Creatinine (0.66-1.25) mg/dL Estimated GFR (>60) mL/min BUN/Creatinine Ratio (6-22) Glucose (80-110) mg/dL Lactate 2.5 H (0.7-2.1) mmol/L Calcium (8.4-10.2) mg/dL Total Bilirubin (0.2-1.3) mg/dL AST (17-59) IU/L ALT (<50) IU/L Alkaline Phosphatase (38-126) U/L Total Creatine Kinase (55-170) U/L CK-MB (CK-2) CK-MB (CK-2) Rel Index Troponin I (0.01-0.034) ng/mL Total Protein (6.3-8.2) g/dL Albumin (3.5-5.0) g/dL Globulin (1.7-4.1) g/dL Albumin/Globulin Ratio (1.0-2.8) Lipase (23-300) U/L COVID-19 PCR Negative (Negative) 04/08/20 04/08/20 04/08/20 Range/Units 00:58 00:58 00:58 WBC 34.8 H* (4.5-11.0) X10^3/uL RBC 4.81 (4.5-5.9) X10^6/uL Hgb 15.0 (13.5-17.5) g/dL Hct 45.6 (41-53) % MCV 94.9 (80-100) fL MCH 31.3 (26-34) PG MCHC 33.0 (30-36) % RDW 13.4 (11.6-14.8) % Plt Count 189 (150-400) X10^3/uL Neut % (Auto) Not Reportable Lymph % (Auto) Not Reportable [place] % (Auto) Not Reportable Eos % (Auto) Not Reportable Baso % (Auto) Not Reportable Lymph # (Auto) Not Reportable [place] # (Auto) Not Reportable Baso # (Auto) Not Reportable Total Counted 100 Seg Neutrophils % 82.0 H (38-70) % Band Neutrophils % 10.0 H (3-7) % Lymphocytes % (Manual) 4.0 L (25-45) % Atypical Lymphs % ( - 0) % Monocytes % (Manual) 4.0 (2-11) % Neutrophils # (Manual) 25507 H (1416-1085) /uL RBC Morphology Normal morphology PT (10.1-12.7) SECONDS INR (0.9-1.3) APTT > 400 H* Sodium 138 (137-145) mmol/L Potassium 3.3 L (3.4-5.1) mmol/L Chloride 102 (98-107) mmol/L Carbon Dioxide 28 (22-32) mmol/L BUN 12 (9-20) mg/dL Creatinine 0.59 L (0.66-1.25) mg/dL Estimated GFR > 60.0 (>60) mL/min BUN/Creatinine Ratio 20.3 (6-22) Glucose 176 H (80-110) mg/dL Lactate (0.7-2.1) mmol/L Calcium 8.7 (8.4-10.2) mg/dL Total Bilirubin 1.8 H (0.2-1.3) mg/dL AST 35 (17-59) IU/L ALT 34 (<50) IU/L Alkaline Phosphatase 68 (38-126) U/L Total Creatine Kinase (55-170) U/L CK-MB (CK-2) CK-MB (CK-2) Rel Index Troponin I (0.01-0.034) ng/mL Total Protein 7.4 (6.3-8.2) g/dL Albumin 4.0 (3.5-5.0) g/dL Globulin 3.4 (1.7-4.1) g/dL Albumin/Globulin Ratio 1.2 (1.0-2.8) Lipase (23-300) U/L COVID-19 PCR (Negative) 04/08/20 04/08/20 04/08/20 Range/Units 00:58 06:03 06:03 WBC 34.0 H* (4.5-11.0) X10^3/uL RBC 4.83 (4.5-5.9) X10^6/uL Hgb 15.3 (13.5-17.5) g/dL Hct 46.0 (41-53) % MCV 95.2 (80-100) fL MCH 31.7 (26-34) PG MCHC 33.3 (30-36) % RDW 13.5 (11.6-14.8) % Plt Count 183 (150-400) X10^3/uL Neut % (Auto) Not Reportable Lymph % (Auto) Not Reportable [place] % (Auto) Not Reportable Eos % (Auto) Not Reportable Baso % (Auto) Not Reportable Lymph # (Auto) Not Reportable [place] # (Auto) Not Reportable Baso # (Auto) Not Reportable Total Counted 100 Seg Neutrophils % 81.0 H (38-70) % Band Neutrophils % 13.0 H (3-7) % Lymphocytes % (Manual) 3.0 L (25-45) % Atypical Lymphs % ( - 0) % Monocytes % (Manual) 3.0 (2-11) % Neutrophils # (Manual) 07956 H (2600-7883) /uL RBC Morphology Normal morphology PT (10.1-12.7) SECONDS INR (0.9-1.3) APTT Sodium 140 (137-145) mmol/L Potassium 3.6 (3.4-5.1) mmol/L Chloride 104 (98-107) mmol/L Carbon Dioxide 28 (22-32) mmol/L BUN 14 (9-20) mg/dL Creatinine 0.61 L (0.66-1.25) mg/dL Estimated GFR > 60.0 (>60) mL/min BUN/Creatinine Ratio 23.0 H (6-22) Glucose 152 H (80-110) mg/dL Lactate 1.8 (0.7-2.1) mmol/L Calcium 8.6 (8.4-10.2) mg/dL Total Bilirubin 1.5 H (0.2-1.3) mg/dL AST 37 (17-59) IU/L ALT 33 (<50) IU/L Alkaline Phosphatase 65 (38-126) U/L Total Creatine Kinase (55-170) U/L CK-MB (CK-2) CK-MB (CK-2) Rel Index Troponin I (0.01-0.034) ng/mL Total Protein 7.3 (6.3-8.2) g/dL Albumin 3.9 (3.5-5.0) g/dL Globulin 3.4 (1.7-4.1) g/dL Albumin/Globulin Ratio 1.1 (1.0-2.8) Lipase (23-300) U/L COVID-19 PCR (Negative) 04/08/20 04/08/20 04/08/20 Range/Units 06:03 06:03 12:05 WBC (4.5-11.0) X10^3/uL RBC (4.5-5.9) X10^6/uL Hgb (13.5-17.5) g/dL Hct (41-53) % MCV (80-100) fL MCH (26-34) PG MCHC (30-36) % RDW (11.6-14.8) % Plt Count (150-400) X10^3/uL Neut % (Auto) Lymph % (Auto) [place] % (Auto) Eos % (Auto) Baso % (Auto) Lymph # (Auto) [place] # (Auto) Baso # (Auto) Total Counted Seg Neutrophils % (38-70) % Band Neutrophils % (3-7) % Lymphocytes % (Manual) (25-45) % Atypical Lymphs % ( - 0) % Monocytes % (Manual) (2-11) % Neutrophils # (Manual) (2711-2624) /uL RBC Morphology PT (10.1-12.7) SECONDS INR (0.9-1.3) APTT > 140 H* D 80 H* D Sodium (137-145) mmol/L Potassium (3.4-5.1) mmol/L Chloride (98-107) mmol/L Carbon Dioxide (22-32) mmol/L BUN (9-20) mg/dL Creatinine (0.66-1.25) mg/dL Estimated GFR (>60) mL/min BUN/Creatinine Ratio (6-22) Glucose (80-110) mg/dL Lactate 1.9 (0.7-2.1) mmol/L Calcium (8.4-10.2) mg/dL Total Bilirubin (0.2-1.3) mg/dL AST (17-59) IU/L ALT (<50) IU/L Alkaline Phosphatase (38-126) U/L Total Creatine Kinase (55-170) U/L CK-MB (CK-2) CK-MB (CK-2) Rel Index Troponin I (0.01-0.034) ng/mL Total Protein (6.3-8.2) g/dL Albumin (3.5-5.0) g/dL Globulin (1.7-4.1) g/dL Albumin/Globulin Ratio (1.0-2.8) Lipase (23-300) U/L COVID-19 PCR (Negative) 04/08/20 04/08/20 04/08/20 Range/Units 12:14 12:14 12:14 WBC 27.9 H (4.5-11.0) X10^3/uL RBC 4.37 L (4.5-5.9) X10^6/uL Hgb 13.7 (13.5-17.5) g/dL Hct 41.7 (41-53) % MCV 95.4 (80-100) fL MCH 31.4 (26-34) PG MCHC 32.9 (30-36) % RDW 13.4 (11.6-14.8) % Plt Count 192 (150-400) X10^3/uL Neut % (Auto) Not Reportable Lymph % (Auto) Not Reportable [place] % (Auto) Not Reportable Eos % (Auto) Not Reportable Baso % (Auto) Not Reportable Lymph # (Auto) Not Reportable [place] # (Auto) Not Reportable Baso # (Auto) Not Reportable Total Counted 100 Seg Neutrophils % 84.0 H (38-70) % Band Neutrophils % 8.0 H (3-7) % Lymphocytes % (Manual) 6.0 L (25-45) % Atypical Lymphs % ( - 0) % Monocytes % (Manual) 2.0 (2-11) % Neutrophils # (Manual) 07525 H (2219-3035) /uL RBC Morphology Normal morphology PT (10.1-12.7) SECONDS INR (0.9-1.3) APTT Sodium 139 (137-145) mmol/L Potassium 4.0 (3.4-5.1) mmol/L Chloride 106 (98-107) mmol/L Carbon Dioxide 27 (22-32) mmol/L BUN 16 (9-20) mg/dL Creatinine 0.55 L (0.66-1.25) mg/dL Estimated GFR > 60.0 (>60) mL/min BUN/Creatinine Ratio 29.1 H (6-22) Glucose 112 H (80-110) mg/dL Lactate 1.4 (0.7-2.1) mmol/L Calcium 8.4 (8.4-10.2) mg/dL Total Bilirubin 1.5 H (0.2-1.3) mg/dL AST 45 (17-59) IU/L ALT 30 (<50) IU/L Alkaline Phosphatase 46 (38-126) U/L Total Creatine Kinase (55-170) U/L CK-MB (CK-2) CK-MB (CK-2) Rel Index Troponin I (0.01-0.034) ng/mL Total Protein 7.0 (6.3-8.2) g/dL Albumin 3.7 (3.5-5.0) g/dL Globulin 3.3 (1.7-4.1) g/dL Albumin/Globulin Ratio 1.1 (1.0-2.8) Lipase (23-300) U/L COVID-19 PCR (Negative) Point of care testing: Urine Dip Bedside Urine Glucose Negative Bedside Urine Bilirubin - Negative Bedside Urine Ketone - Negative Urine Specific [place] 1.015 Bedside Urine Occult Blood +/- Bedside Urine pH 6.5 Bedside Urine Protein - Negative Bedside Urine Urobilinogen - Negative Bedside Urine Nitrite - Negative Bedside Urine Leukocytes - Negative Esterase Critical Care Time <Telly Yancey DO - Last Filed: 04/08/20 14:25> Critical Care Time Critical Care Time: Yes Total Critical Care Time: 60 Attestation: The high probability of a clinically significant, sudden or life threatening deterioration of the [CV/GI] system(s) required my full and direct attention, intervention and personal management. The aggregate critical care time was [60] minutes. This time is in addition to time spent performing reported procedures but includes the following: [x] Data Review and interpretation [x] Patient assessment and monitoring of vital signs [x] Documentation [x] Medication orders and management Discharge Plan Departure Patient Disposition: [facility] Clinical Impression: Acute ischemic colitis, Superior mesenteric artery stenosis Abdominal pain Qualifiers: Abdominal location: upper abdomen, unspecified Qualified Code(s): R10.10 - Upper abdominal pain, unspecified Discharge Date/Time: 04/08/20 15:15 Prescriptions: No Action atorvastatin 40 mg Tablet 40 mg PO BEDTIME RF: 0 cilostazol 100 mg Tablet 50 mg PO BID RF: 0 clopidogrel 75 mg Tablet 75 mg PO DAILY RF: 0 aspirin [Adult Low Dose Aspirin] 81 mg Tablet,Delayed Release (Dr/Ec) 81 mg PO DAILY RF: 0 acitretin 25 mg Capsule 25 mg PO DAILY RF: 0 amlodipine 10 mg Tablet 10 mg PO DAILY RF: 0 lisinopril 10 mg Tablet 10 mg PO DAILY RF: 0 omeprazole 20 mg Capsule,Delayed Release(Dr/Ec) 20 mg PO DAILY RF: 0 coQ10 (ubiquinol) 100 mg Capsule 200 mg PO DAILY RF: 0 Referrals: Serena Ferrera MD [Primary Care Provider] -
[2020-04-07] MEDS: PANTOPRAZOLE 40 MG VIAL IV ×2 (13:28→22:24)
[2020-04-07] MEDS: SODIUM CHLORIDE 0.9% 1,000 ML 1000 ML IV (13:29)
[2020-04-07 13:33] LABS: Hematocrit 47.2 % (41-53); Hemoglobin 15.7 g/dL (13.5-17.5); Mean Corpuscular HGB Conc 33.2 % (30-36); Mean Corpuscular Hemoglobin 31.4 PG (26-34); Mean Corpuscular Volume 94.7 fL (80-100); Platelet Count 238 X10^3/uL (150-400); Red Blood Cell Count 4.98 X10^6/uL (4.5-5.9); Red Cell Distribution Width 13.4 % (11.6-14.8); White Blood Cell Count 25.2 X10^3/uL (4.5-11.0)
[2020-04-07 13:34] LABS: Add Manual Diff / Slide Review YES
[2020-04-07 13:43] LABS: Lactate (Lactic Acid) 2.2 mmol/L (0.7-2.1)
[2020-04-07 13:44] LABS: Alanine Aminotransferase 42 IU/L (<50); Albumin 4.7 g/dL (3.5-5.0); Albumin Globulin Ratio 1.2 (1.0-2.8); Alkaline Phosphatase 82 U/L (38-126); Aspartate Aminotransferase 49 IU/L (17-59); BUN Creatinine Ratio 21.4 (6-22); Bilirubin Total 1.8 mg/dL (0.2-1.3); Blood Urea Nitrogen 12 mg/dL (9-20); Calcium 9.3 mg/dL (8.4-10.2); Carbon Dioxide 27 mmol/L (22-32); Chloride 96 mmol/L (98-107); Creatine Kinase 74 U/L (55-170); Estimated Glomerular Filt Rate > 60.0 mL/min (>60); Globulin 3.8 g/dL (1.7-4.1); Glucose 125 mg/dL (80-110); HEMOLYSIS < 15 (0-50); Lipase 27 U/L (23-300); Potassium 3.9 mmol/L (3.4-5.1); Sodium 133 mmol/L (137-145); Total Protein 8.5 g/dL (6.3-8.2)
[2020-04-07 13:55] LABS: Troponin I < 0.012 ng/mL (0.01-0.034)
--- NOTE | 2020-04-07 13:58 | DI.CT.S_ITS ---
PROCEDURE: CT ABDOMEN PELVIS W CON INDICATIONS: severe epigastric pain, elevated WBC, lactate, vomiting TECHNIQUE: After the administration of intravenous contrast, 5 mm thick sections acquired from the diaphragm to the symphysis. 5 mm coronal and sagittal reformats were acquired. For radiation dose reduction, the following was used: automated exposure control, adjustment of mA and/or kV according to patient size. COMPARISON: [facility], MR, MR LUMBAR SPINE WO CON, 03/18/2019, 11:04. [facility], CR, XR ACUTE ABDOMEN SERIES, 04/07/2020, 13:30. FINDINGS: Image quality: Excellent. ABDOMEN: Lung bases: Lung bases are clear. Heart size is normal. There is a small to moderate hiatal hernia. Coronary artery calcifications are seen. Solid organs: Liver is normal in size and enhancement. Diffuse fatty liver infiltration is noted. Gallbladder wall is not thickened. Biliary system is non dilated. Pancreas enhances normally. Spleen is normal in size and enhancement. There is a right adrenal nodule seen involving the lateral limb, which measures 2.1 cm and measures 55 Hounsfield units, as on series 2, image 20. No left adrenal nodules. Kidneys demonstrate normal size and enhancement, without hydronephrosis. Peritoneum and bowel: A prominent common gas distended colon is seen, which measures up to 6 cm. There is a transition point seen within the descending colon, yet without mass or significant wall thickening to suggest pathology at this site. No pneumatosis is seen. There is focal wall thickening with irregularity seen involving the cecum. No dilated loops of small bowel are seen. No free fluid or air. Colonic diverticulosis is seen, without findings of active diverticulitis. A normal appendix is incidentally noted. Nodes and vessels: No retroperitoneal or mesenteric adenopathy by size criteria. Aorta and inferior vena cava are normal in size. Prominent aortic calcification is seen including involving the abdominal branches. There is prominent calcification seen involving the SMA, with likely 90% stenosis. However, flow can be seen within it. Prominent calcification is also seen involving iliac system. Miscellaneous: A mild periumbilical hernia is seen, containing fat. PELVIS: Genitourinary: Bladder wall thickness is normal. The prostate is prominent, measuring 5.7 cm transversely. Miscellaneous: No enlarged inguinal or pelvic lymph nodes are seen. There is a fat-containing left inguinal hernia seen. Bones: No suspicious bony lesions. No vertebral body compression fractures. Moderate levoconvex thoracolumbar scoliosis is seen. IMPRESSION: Prominent, gas distended colon, without a cause of obstruction seen. No pneumatosis is seen. In this patient with advanced coronary artery calcification and the given history, please consider ischemic colitis. The SMA demonstrates a prominent stenosis proximally, yet flow can be seen within it. If clinically appropriate, please consider short-term follow-up. Focal wall thickening is seen involving the cecum. In a patient of this age, please consider colonoscopy to evaluate for a potential underlying mass, if not already recently done. A small to moderate hiatal hernia is seen. Incidental note is made of: Generalized artery calcification Fatty liver infiltration Moderate levoconvex scoliosis Fat containing periumbilical hernia Normal appendix Diverticulosis, without active diverticulitis Prominent prostate Small fat containing left inguinal hernia Dictated by: Tejas Galindo M.D. on 04/07/2020 at 13:41 Approved by: Tejas Galindo M.D. on 04/07/2020 at 13:50
[2020-04-07 14:04] LABS: Neutrophils Absolute Manual 22428 /uL (3000-5900); RBC Morphology Normal Morphology; Total Cells Counted 100
[2020-04-07] MEDS: SODIUM CHLORIDE 0.9% 1,983 ML 661 ML IV (14:10)
[2020-04-07] MEDS: PIPERACILLIN-TAZO 3.375 GM/50 ML FROZ.PIGGY IV (14:10)
[2020-04-07 14:57] LABS: COVID19 -Nasal RAPID Negative (Negative)
[2020-04-07 15:30] LABS: Reflexed Lactate in 2 Hours Y
[2020-04-07] MEDS: ONDANSETRON 4 MG/2 ML INJ (15:50)
--- NOTE | 2020-04-07 15:53 | PM.HP.1 ---
History of Present Illness History of Present Illness Date Patient Seen: 04/07/20 Time Patient Seen: 15:54 Chief complaint: Stomach pain/vomitting/chills Narrative: This is a 74-year-old man with history of HTN, claudication, on Plavix and cilostazol, hyperlipidemia, psoriasis, GERD, who came into the ER with one day of nausea, severe epigastric pain, vomiting and diffuse abdominal pain. He had one major episode of vomiting this morning, and nothing since then. He states his last bowel movements were small yesterday, and large two days ago. He has been passing small amounts of gas. In the ER he had an xray and CT scan which showed a gas filled colon and a possible transition point in the distal colon. His only abdominal surgery was an inguinal hernia repair in childhood. He has never had an EGD or colonoscopy. He denies melena, hematochezia, unexplained weight loss, family history of colorectal diseases or disorders. Review of Systems Constitutional: Denies chills, Denies fatigue, Denies fever(s), Denies frequent falls, Denies lethargy and Denies weakness Eyes: Denies change in vision, Denies eye discharge, Denies irritation and Denies loss of vision Ears, Nose, Mouth, and Throat: Denies change in voice, Denies dizziness, Denies neck pain, Denies sore throat and Denies throat swelling Cardiovascular: Denies chest pain, Denies irregular heart rhythm, Denies lightheadedness, Denies palpitations, Denies dyspnea, Denies dyspnea on exertion and Denies orthopnea Respiratory: Denies cough, Denies dyspnea, Denies dyspnea on exertion and Denies wheezing Gastrointestinal: Reports abdominal pain, Denies change in bowel habits, Denies diarrhea, Reports nausea and Reports vomiting Musculoskeletal: Denies neck pain and Denies numbness Skin/Breast: Denies pruritus, Denies erythema, Denies rash and Denies wounds Neurologic: Denies behavioral changes, Denies confusion, Denies dizziness, Denies frequent falls, Denies loss of vision, Denies numbness and Denies weakness Psychiatric: Denies anxiety, Denies behavioral changes, Denies confusion, Denies depression, Denies homicidal ideation and Denies suicidal ideation Endocrine: Denies fatigue, Denies flushing and Denies palpitations Hematologic/Lymphatic: Denies easy bruising Allergic/Immunologic: Denies urticaria, Denies throat swelling and Denies wheezing PE: GENERAL: Well groomed and cooperative. Appears stated age. Answers questions promptly and appropriately. Vital signs noted. HENT: Normocephalic, atraumatic. Hearing intact. EYES: Conjunctiva pink, sclera white, no periorbital swelling. CARDIOVASCULAR: Regular rate. No pedal edema. RESPIRATORY: Non-tachypneic, breathing comfortably on room air. GASTROINTESTINAL: Abdomen soft and non-distended; nontender; small soft reducible umbilical hernia with tenderness on deep palpation GENITALURINARY: No flank tenderness. MUSCULOSKELETAL: Equal tone and mass bilaterally. SKIN: Warm, dry, soft, appropriate color for ethnicity. No other lesions, rashes, or wounds. NEURO: Alert and Oriented X 3. No gross sensory deficits, or cognitive issues. PSYCH: Appropriate affect and mood. Patient History Family & Social History Safety & Behavioral: Feels Safe in Current Yes Environment Tobacco & Substance use: Smoking Status Former smoker alcohol intake frequency 0-2 drinks per day Substance Use Type does not use Meds Home Medications and Allergies Home Medications Medication Instructions Recorded Confirmed Type acitretin 25 mg PO DAILY 04/07/20 04/07/20 History amlodipine 10 mg PO DAILY 04/07/20 04/07/20 History aspirin [Adult Low Dose Aspirin] 81 mg PO DAILY 04/07/20 04/07/20 History atorvastatin 40 mg PO BEDTIME 04/07/20 04/07/20 History cilostazol 50 mg PO BID 04/07/20 04/07/20 History clopidogrel 75 mg PO DAILY 04/07/20 04/07/20 History coQ10 (ubiquinol) 200 mg PO DAILY 04/07/20 04/07/20 History lisinopril 10 mg PO DAILY 04/07/20 04/07/20 History omeprazole 20 mg PO DAILY 04/07/20 04/07/20 History Allergies Allergy/AdvReac Type Severity Reaction Status Date / Time No Known Drug Allergies Allergy Verified 04/07/20 15:00 Exam Vital Signs (past 8 hours): - 04/07/20 13:20 04/07/20 13:30 04/07/20 14:00 Temperature 100.5 F H Pulse Rate 111 H 104 H 101 H Respiratory Rate 25 H 19 29 H Blood Pressure 158/81 H 153/76 H Pulse Oximetry 95 95 94 04/07/20 14:31 04/07/20 14:32 04/07/20 14:53 Temperature 100.2 F H Pulse Rate 115 H 111 H Respiratory Rate Blood Pressure 170/81 H Pulse Oximetry 92 95 Oxygen Delivery Method Room Air Objective Imaging CT scan - abdomen: Radiologist's impression: [address] [address] [address] Scan Report Signed Patient: Nicolas Lyon LMR#: [id number] : 8Acct:[id number] Age/Sex: 74 / MDate of Service: 04/07/20 Loc: ED Accession Number: [id number] Procedure: CT abdomen pelvis w con Ordering Provider: Telly Sweet D.O. PROCEDURE: CT ABDOMEN PELVIS W CON INDICATIONS: severe epigastric pain, elevated WBC, lactate, vomiting TECHNIQUE: After the administration of intravenous contrast, 5 mm thick sections acquired from the diaphragm to the symphysis. 5 mm coronal and sagittal reformats were acquired. For radiation dose reduction, the following was used: automated exposure control, adjustment of mA and/or kV according to patient size. COMPARISON: [facility], MR, MR LUMBAR SPINE WO CON, 03/18/2019, 11:04. [facility], CR, XR ACUTE ABDOMEN SERIES, 04/07/2020, 13:30. FINDINGS: Image quality: Excellent. ABDOMEN: Lung bases: Lung bases are clear. Heart size is normal. There is a small to moderate hiatal hernia. Coronary artery calcifications are seen. Solid organs: Liver is normal in size and enhancement. Diffuse fatty liver infiltration is noted. Gallbladder wall is not thickened. Biliary system is non dilated. Pancreas enhances normally. Spleen is normal in size and enhancement. There is a right adrenal nodule seen involving the lateral limb, which measures 2.1 cm and measures 55 Hounsfield units, as on series 2, image 20. No left adrenal nodules. Kidneys demonstrate normal size and enhancement, without hydronephrosis. Peritoneum and bowel: A prominent common gas distended colon is seen, which measures up to 6 cm. There is a transition point seen within the descending colon, yet without mass or significant wall thickening to suggest pathology at this site. No pneumatosis is seen. There is focal wall thickening with irregularity seen involving the cecum. No dilated loops of small bowel are seen. No free fluid or air. Colonic diverticulosis is seen, without findings of active diverticulitis. A normal appendix is incidentally noted. Nodes and vessels: No retroperitoneal or mesenteric adenopathy by size criteria. Aorta and inferior vena cava are normal in size. Prominent aortic calcification is seen including involving the abdominal branches. There is prominent calcification seen involving the SMA, with likely 90% stenosis. However, flow can be seen within it. Prominent calcification is also seen involving iliac system. Miscellaneous: A mild periumbilical hernia is seen, containing fat. PELVIS: Genitourinary: Bladder wall thickness is normal. The prostate is prominent, measuring 5.7 cm transversely. Miscellaneous: No enlarged inguinal or pelvic lymph nodes are seen. There is a fat-containing left inguinal hernia seen. Bones: No suspicious bony lesions. No vertebral body compression fractures. Moderate levoconvex thoracolumbar scoliosis is seen. IMPRESSION: Prominent, gas distended colon, without a cause of obstruction seen. No pneumatosis is seen. In this patient with advanced coronary artery calcification and the given history, please consider ischemic colitis. The SMA demonstrates a prominent stenosis proximally, yet flow can be seen within it. If clinically appropriate, please consider short-term follow-up. Focal wall thickening is seen involving the cecum. In a patient of this age, please consider colonoscopy to evaluate for a potential underlying mass, if not already recently done. A small to moderate hiatal hernia is seen. Incidental note is made of: Generalized artery calcification Fatty liver infiltration Moderate levoconvex scoliosis Fat containing periumbilical hernia Normal appendix Diverticulosis, without active diverticulitis Prominent prostate Small fat containing left inguinal hernia Dictated by: Tejas Galindo M.D. on 04/07/2020 at 13:41 Approved by: Tejas Galindo M.D. on 04/07/2020 at 13:50 Labs Result Diagrams: 04/07/20 13:00 04/07/20 13:00 Labs: Laboratory Results - last 24 hr 04/07/20 04/07/20 04/07/20 13:00 13:00 13:00 WBC 25.2 H RBC 4.98 Hgb 15.7 Hct 47.2 MCV 94.7 MCH 31.4 MCHC 33.2 RDW 13.4 Plt Count 238 Neut % (Auto) Not Reportable Lymph % (Auto) Not Reportable Zavala % (Auto) Not Reportable Eos % (Auto) Not Reportable Baso % (Auto) Not Reportable Lymph # (Auto) Not Reportable Zavala # (Auto) Not Reportable Baso # (Auto) Not Reportable Total Counted 100 Seg Neutrophils % 61.0 Band Neutrophils % 28.0 H Lymphocytes % (Manual) 2.0 L Atypical Lymphs % 1.0 H Monocytes % (Manual) 8.0 Neutrophils # (Manual) 20144 H RBC Morphology Normal morphology Sodium 133 L Potassium 3.9 Chloride 96 L Carbon Dioxide 27 BUN 12 Creatinine 0.56 L Estimated GFR > 60.0 BUN/Creatinine Ratio 21.4 Glucose 125 H Lactate 2.2 H Calcium 9.3 Total Bilirubin 1.8 H AST 49 ALT 42 Alkaline Phosphatase 82 Total Creatine Kinase 74 CK-MB (CK-2) TNP CK-MB (CK-2) Rel Index TNP Troponin I < 0.012 Total Protein 8.5 H Albumin 4.7 Globulin 3.8 Albumin/Globulin Ratio 1.2 Lipase 27 COVID-19 PCR 04/07/20 14:30 WBC RBC Hgb Hct MCV MCH MCHC RDW Plt Count Neut % (Auto) Lymph % (Auto) Zavala % (Auto) Eos % (Auto) Baso % (Auto) Lymph # (Auto) Zavala # (Auto) Baso # (Auto) Total Counted Seg Neutrophils % Band Neutrophils % Lymphocytes % (Manual) Atypical Lymphs % Monocytes % (Manual) Neutrophils # (Manual) RBC Morphology Sodium Potassium Chloride Carbon Dioxide BUN Creatinine Estimated GFR BUN/Creatinine Ratio Glucose Lactate Calcium Total Bilirubin AST ALT Alkaline Phosphatase Total Creatine Kinase CK-MB (CK-2) CK-MB (CK-2) Rel Index Troponin I Total Protein Albumin Globulin Albumin/Globulin Ratio Lipase COVID-19 PCR Negative Assessment & Plan Assessment and plan (1) Abdominal pain: Qualifiers: Abdominal location: upper abdomen, unspecified Qualified Code(s): R10.10 - Upper abdominal pain, unspecified Status: Acute (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 When I initially saw him he was pain free, and had a nontender abdomen. He was very comfortable and nontoxic appearing. His lactate was 2.2. On his CT scan the bowel was relatively unimpressive other than a dilated colon with a transition point in the distal colon. However, he had a narrowing of his superior mesenteric artery estimated to be around 90% occluded on the CT scan. The patient describes no history of food fear, and had no pain out of proportion on exam. Initially the decision was made to perform a barium enema to evaluate the transition point in the distal colon. However, this was not possible due to unavailability of a radiologist to perform the procedure on the weekend. The decision was then made to do a small-bowel follow-through, but the patient had a recurrence of his severe pain and nausea with the initial administration of oral contrast. At this point my concern turned back to the SMA stenosis and the potential for impending gut ischemia. In the meantime a repeat lactate was drawn which went from 2.2-2.5, increasing my concern. I recommended to Dr. Sweet that we transfer the patient urgent to a facility where he could get IR for vascular intervention, or vascular + general surgery to revascularize his SMA surgically. I recommend that he remain strictly NPO for now in order to avoid any further stimulation of the gut, and well hydrated with IV fluids. If transfer will be delayed, we should consider starting him on heparin drip in the interim. COVID-19 COVID-19 status: Negative Result date/Date tested (Pos, Neg/Pending): 04/07/20 Time Spent With Patient Time with patient: Greater than 35 minutes
[2020-04-07 16:05] LABS: Lactate 2HR (Lactic Acid Rflx) 2.5 mmol/L (0.7-2.1)
--- NOTE | 2020-04-07 16:32 | PC.NURSE ---
Pt reports increased pain in abdomen post contrast intake. Pt describes as 8/10, heaviness throughout lower abdomen. Denies nausea and radiation of pain. Dr. Sweet notified asked to page Dr. Cardenas. Awaiting response. Additionally pt coached on breathing and respositioned due to decreased 02 saturations. Pt improved to 94% from 88% on RA.
[2020-04-07] MEDS: MORPHINE 4 MG/ML INJ IV (17:07)
--- NOTE | 2020-04-07 17:41 | PC.NURSE ---
Notified by Dr Vasquez to cancel small bowel follow through and that patient to be transferred based on complaints of increased pain after drinking contrast.
[2020-04-07] MEDS: HEPARIN 5,000 UNIT/ML VIAL 6000 UNIT IV (19:04)
[2020-04-07] MEDS: HEPARIN DRIP 25,000 UNIT/500 ML IV.SOLN 26.943 UNIT IV (19:07)
[2020-04-07 20:09] LABS: Prothrombin Time 17.7 SECONDS (10.1-12.7)
[2020-04-07 20:18] LABS: INR 1.5 (0.9-1.3)
[2020-04-08] VITALS (39 sets, daily range): BP systolic 120–164; BP diastolic 56–86; PULSE 57–107; RESP 14–39; O2SAT 92–98
--- NOTE | 2020-04-08 00:35 | PC.NURSE ---
Notified Dr Staples after heparin started at 1930 that baseline PTT had not been completed, lab unable to do PTT off of original labs because of time frame, verbal order for 0100 draw of PTT to be completed per protocol of 6 hr post heparin drip initiation. explosive operator bombMONIKA gomez.
[2020-04-08 01:20] LABS: Add Manual Diff / Slide Review YES; Hematocrit 45.6 % (41-53); Mean Corpuscular Hemoglobin 31.3 PG (26-34); Mean Corpuscular Volume 94.9 fL (80-100); Platelet Count 189 X10^3/uL (150-400); Red Blood Cell Count 4.81 X10^6/uL (4.5-5.9); Red Cell Distribution Width 13.4 % (11.6-14.8)
[2020-04-08 01:22] LABS: Alanine Aminotransferase 34 IU/L (<50); Albumin Globulin Ratio 1.2 (1.0-2.8); Alkaline Phosphatase 68 U/L (38-126); Aspartate Aminotransferase 35 IU/L (17-59); BUN Creatinine Ratio 20.3 (6-22); Bilirubin Total 1.8 mg/dL (0.2-1.3); Blood Urea Nitrogen 12 mg/dL (9-20); Calcium 8.7 mg/dL (8.4-10.2); Carbon Dioxide 28 mmol/L (22-32); Chloride 102 mmol/L (98-107); Estimated Glomerular Filt Rate > 60.0 mL/min (>60); Globulin 3.4 g/dL (1.7-4.1); Glucose 176 mg/dL (80-110); HEMOLYSIS < 15 (0-50); Potassium 3.3 mmol/L (3.4-5.1); Sodium 138 mmol/L (137-145); Total Protein 7.4 g/dL (6.3-8.2); White Blood Cell Count 34.8 X10^3/uL (4.5-11.0)
[2020-04-08] MEDS: HYDROMORPHONE 0.5 MG INJ IV (01:22)
[2020-04-08 01:23] LABS: Lactate (Lactic Acid) 1.8 mmol/L (0.7-2.1)
[2020-04-08] MEDS: SODIUM CHLORIDE 0.9% 1,000 ML 100 ML IV (01:23)
--- NOTE | 2020-04-08 01:30 | PC.NURSE ---
Pt's PTT >400, Provider aware. Per protocol and providers order, turned off heparin for 1 hour then will resume at 300 units less. to Resume at 1000 units per hour.
[2020-04-08 01:33] LABS: PTT Partial Thromboplastin Tim > 400 SECONDS (26.4-36.2)
[2020-04-08 01:36] LABS: RBC Morphology Normal Morphology; Total Cells Counted 100
--- NOTE | 2020-04-08 06:01 | PC.NURSE ---
Critical WBC of 34 reported to
[2020-04-08 06:22] LABS: Hemoglobin 15.3 g/dL (13.5-17.5); Mean Corpuscular HGB Conc 33.3 % (30-36); Mean Corpuscular Hemoglobin 31.7 PG (26-34); Mean Corpuscular Volume 95.2 fL (80-100); Platelet Count 183 X10^3/uL (150-400); Red Blood Cell Count 4.83 X10^6/uL (4.5-5.9); Red Cell Distribution Width 13.5 % (11.6-14.8)
[2020-04-08 06:25] LABS: Add Manual Diff / Slide Review YES
[2020-04-08 06:28] LABS: Lactate (Lactic Acid) 1.9 mmol/L (0.7-2.1)
[2020-04-08 06:29] LABS: Alanine Aminotransferase 33 IU/L (<50); Albumin 3.9 g/dL (3.5-5.0); Albumin Globulin Ratio 1.1 (1.0-2.8); Alkaline Phosphatase 65 U/L (38-126); Aspartate Aminotransferase 37 IU/L (17-59); Bilirubin Total 1.5 mg/dL (0.2-1.3); Blood Urea Nitrogen 14 mg/dL (9-20); Calcium 8.6 mg/dL (8.4-10.2); Carbon Dioxide 28 mmol/L (22-32); Chloride 104 mmol/L (98-107); Estimated Glomerular Filt Rate > 60.0 mL/min (>60); Globulin 3.4 g/dL (1.7-4.1); Glucose 152 mg/dL (80-110); HEMOLYSIS < 15 (0-50); Potassium 3.6 mmol/L (3.4-5.1); Sodium 140 mmol/L (137-145); Total Protein 7.3 g/dL (6.3-8.2)
[2020-04-08 06:43] LABS: Neutrophils Absolute Manual 31960 /uL (3000-5900); Total Cells Counted 100
--- NOTE | 2020-04-08 06:43 | PC.NURSE ---
PTT was at >140 turned off heparin for 1 hour. will reduce by 200 units per hour when turned back on.
[2020-04-08 06:44] LABS: RBC Morphology Normal Morphology
--- NOTE | 2020-04-08 07:59 | PC.NURSE ---
pt up to the sink to wipe his face and brushed teeth.
[2020-04-08] MEDS: PANTOPRAZOLE 40 MG VIAL IV (09:55)
--- NOTE | 2020-04-08 11:21 | PC.NURSE ---
sbar recived pt resting in bed on nuclear monitoring technician heparin drip infusing
[2020-04-08 12:27] LABS: Hematocrit 41.7 % (41-53); Hemoglobin 13.7 g/dL (13.5-17.5); Mean Corpuscular HGB Conc 32.9 % (30-36); Mean Corpuscular Hemoglobin 31.4 PG (26-34); Mean Corpuscular Volume 95.4 fL (80-100); Platelet Count 192 X10^3/uL (150-400); Red Blood Cell Count 4.37 X10^6/uL (4.5-5.9); Red Cell Distribution Width 13.4 % (11.6-14.8); White Blood Cell Count 27.9 X10^3/uL (4.5-11.0)
[2020-04-08 12:29] LABS: Add Manual Diff / Slide Review YES
[2020-04-08 12:31] LABS: PTT Partial Thromboplastin Tim 80 SECONDS (26.4-36.2)
[2020-04-08 12:40] LABS: Lactate (Lactic Acid) 1.4 mmol/L (0.7-2.1)
[2020-04-08 12:41] LABS: Alanine Aminotransferase 30 IU/L (<50); Albumin 3.7 g/dL (3.5-5.0); Albumin Globulin Ratio 1.1 (1.0-2.8); Alkaline Phosphatase 46 U/L (38-126); Aspartate Aminotransferase 45 IU/L (17-59); BUN Creatinine Ratio 29.1 (6-22); Bilirubin Total 1.5 mg/dL (0.2-1.3); Blood Urea Nitrogen 16 mg/dL (9-20); Calcium 8.4 mg/dL (8.4-10.2); Carbon Dioxide 27 mmol/L (22-32); Chloride 106 mmol/L (98-107); Estimated Glomerular Filt Rate > 60.0 mL/min (>60); Globulin 3.3 g/dL (1.7-4.1); Glucose 112 mg/dL (80-110); HEMOLYSIS 147 (0-50); Sodium 139 mmol/L (137-145)
[2020-04-08 12:46] LABS: Neutrophils Absolute Manual 25668 /uL (3000-5900); Total Cells Counted 100
[2020-04-08 12:47] LABS: RBC Morphology Normal Morphology
[2020-04-08] MEDS: MORPHINE 4 MG/ML INJ IV (12:51)
[2020-04-08] MEDS: MORPHINE 2 MG/ML INJ IV (14:55)
--- NOTE | 2020-04-08 15:22 | PC.NURSE ---
Jessica updated by phone: [phone]
[2020-04-09 21:07] LABS: PTT Partial Thromboplastin Tim 141 SECONDS (26.4-36.2)
== END 2020-04-08 15:15 | disposition short-term general hospital (02) ==
LOC: ED 13:15 → AC 16:01
PROVIDERS: Emergency Medicine; Emergency Provider Emergency Medicine; PCP Family Medicine; Referring Provider Emergency Medicine
DX: K55.039 Acute (reversible) ischemia of large intestine, extent unspecified (principal); K55.1 Chronic vascular disorders of intestine; R10.10 Upper abdominal pain, unspecified; D72.829 Elevated white blood cell count, unspecified; R11.2 Nausea with vomiting, unspecified
CPT/HCPCS: 36415; 74022; 74177; 80053; 81003; 82550; 83605; 83690; 84484; 85025; 85610; 85730; 87040; 87635; 93005; 93010; 96361; 96365; 96366; 96375; 96376; 99285; 99291; C9113; J1170; J1644; J2270; J2405; J2543; Q9967

== ENCOUNTER → 2021-05-20 10:57 | Outpatient (CLI) | payer OTHER, SELFPAY ==
[2021-05-20 11:43] LABS: BUN Creatinine Ratio 18.8 (6-22); Blood Urea Nitrogen 12 mg/dL (9-20); Estimated Glomerular Filt Rate > 60.0 mL/min (>60)
--- NOTE | 2021-05-20 11:44 | DI.CT.S_ITS ---
PROCEDURE: CT ANGIO ABD AORTA RUNOFF INDICATIONS: Atherosclerosis of [place] arteries of extremities TECHNIQUE: After the administration of intravenous contrast, 2.5 mm sections acquired from T12 to the feet, with optional delayed image acquisition from the knees to the feet. 3-dimensional maximum intensity projection (MIP) coronal and sagittal reformats, and/or 3-dimensional volume rendering reformatting was then performed. For radiation dose reduction, the following was used: automated exposure control. COMPARISON: [facility], CT, CT ABDOMEN PELVIS W CON, 04/07/2020, 13:59. FINDINGS: Image quality: Excellent. Extravascular tissues: Lung bases are clear. Heart size is normal. There is calcification of the coronary vasculature. Liver is normal in size and enhancement. Gallbladder is grossly unremarkable . Biliary system is non dilated. Pancreas enhances normally. Spleen is normal in size and enhancement. No change in right adrenal nodule measuring 22 mm. No left adrenal nodules. Kidneys are normal in size and enhancement, without hydronephrosis. A moderate hiatal hernia is present. Appendix is normal. Diverticulosis of the descending and sigmoid colon. Duodenal diverticulum. Non opacified bowel loops demonstrate otherwise normal wall thickness and enhancement. No free fluid or air. No retroperitoneal or mesenteric adenopathy. No ventral hernias. Bladder wall thickness is normal. No inguinal hernias or adenopathy. No suspicious bony lesions. No vertebral body compression fractures. Abdominal aorta: There is severe diffuse calcific plaque causing mild diffuse stenosis of the abdominal aorta. No aneurysm nor dissection. There is a superimposed eccentric calcific plaque within the periceliac abdominal aorta anteriorly measuring roughly 20 mm, and causing moderate aortic stenosis. Renal and mesenteric arteries: High-grade calcific origin stenosis of the celiac and superior mesenteric arteries. Inferior mesenteric artery demonstrates a moderate to high-grade origin stenosis. Single bilateral renal arteries are present. Right renal artery demonstrates a mild origin stenosis. Left renal artery demonstrates a moderate origin stenosis. Right lower extremity: Common, and external iliac arteries demonstrate moderate diffuse calcific plaque, causing mild diffuse stenosis. High-grade origin stenosis of the internal iliac artery. Multifocal moderate high-grade right internal iliac artery stenosis. High-grade eccentric calcific stenosis of the right common femoral artery. Multifocal moderate high-grade calcific stenosis of the profunda and superficial femoral arteries. High-grade eccentric calcific stenosis of the above and below knee popliteal artery. Anterior tibial artery demonstrates a moderate to high-grade calcific stenosis proximally, and is otherwise patent. Tibioperoneal trunk demonstrates moderate calcific stenosis. Peroneal artery is patent. Posterior tibial artery demonstrates mild multifocal calcific stenoses. Left lower extremity: Common and external iliac arteries demonstrate moderate diffuse calcific plaque, causing mild diffuse stenosis. Internal iliac artery demonstrates multifocal high-grade stenoses. Common femoral artery is short with a high bifurcation and demonstrates mild diffuse calcific stenosis. Profunda femoral artery is patent. Superficial femoral artery demonstrates multifocal moderate high-grade stenosis distally. Above knee popliteal artery demonstrates multifocal high-grade stenoses. Below-knee popliteal artery is mildly diffusely stenotic. Anterior tibial artery, tibioperoneal trunk, peroneal and posterior tibial arteries are patent. IMPRESSION: 1. High-grade bilateral inflow and outflow stenoses. 2. 2 vessel right and 3 vessel left lower extremity runoff. 3. Eccentric calcific aortic plaque at the celiac artery origin, causing moderate aortic stenosis and high-grade celiac artery origin stenosis. 4. Stenosis of the celiac, superior mesenteric, and inferior mesenteric arteries. Patient meets angiographic criteria for chronic mesenteric ischemia in the appropriate clinical setting. Dictated by: Zoran Mejia M.D. on 05/20/2021 at 15:48 Approved by: Zoran Mejia M.D. on 05/20/2021 at 15:55
== END ==
PROVIDERS: PCP Internal Medicine; Referring Provider Internal Medicine; Visit Provider Internal Medicine
DX: I70.213 Atherosclerosis of native arteries of extremities with intermittent claudication, bilateral legs (principal); I70.0 Atherosclerosis of aorta
CPT/HCPCS: 36415; 75635; 82565; 84520

== ENCOUNTER → 2022-02-25 13:57 | Outpatient (CLI) | payer OTHER, SELFPAY ==
[2022-02-25 21:38] LABS: Prostate Specific Antigen 7.31 ng/mL (0.10-4.00)
== END ==
PROVIDERS: PCP Internal Medicine; Visit Provider Specialist
DX: R97.20 Elevated prostate specific antigen [PSA] (principal)
CPT/HCPCS: 84153

== ENCOUNTER → 2022-03-20 09:23 | Outpatient (CLI) | payer OTHER, SELFPAY ==
--- NOTE | 2022-03-20 09:24 | DI.MRI.S_ITS ---
PROCEDURE: MR PELVIS WO/W CON INDICATIONS: elevated psa. Prostate. TECHNIQUE: Coronal HASTE, axial T1 FSE with fat saturation, 3-plane nonbreath-hold T2 FSE. After the administration of contrast, dynamic axial, delayed axial and coronal VIBE or 2-D FLASH with fat saturation through the pelvis. Optional diffusion weighted imaging and ADC may be performed. COMPARISON: None. FINDINGS: Image quality: Diffusion weighted and dynamic contrast enhanced images are diagnostic. Prostate: Gland size is 4.9 x 3.1 x 5.1 cm; ellipsoid gland volume is 40 mL. Mild linear and wedge-shaped ADC hypointensities present within the prostate peripheral zone with indistinct T2 correlates (PI-RADS 2 findings). Enlargement of the prostate transitional zone with findings typical of benign prostatic hyperplasia. No large lesion strongly stands out against background parenchymal changes of BPH on T2 weighted images (PI-RADS 2 findings). Genitourinary system: Bladder wall thickness is normal. Distal ureters are non distended. Bowel and peritoneum: No pathologic free pelvic fluid. Inferior colon and small bowel loops are normal in caliber. Sigmoid colonic diverticulosis without evidence of acute diverticulitis. Nodes and vessels: No pelvic or inguinal adenopathy by size criteria. Iliac vessels are normal in caliber. Soft tissues: No inguinal hernias. Bones: Marrow demonstrates normal overall signal, without lesions to suggest metastases. IMPRESSION: 1. No large or highly suspicious focal prostate lesion to direct biopsy. There is enlargement of the prostate transitional zone with findings typical of benign prostatic hyperplasia, with prostate volume estimated at 40 mL. 2. No suspicious lymph nodes visualized in the imaged pelvis. Dictated by: Jack Hayes M.D. on 03/20/2022 at 13:52 Approved by: Jack Hayes M.D. on 03/20/2022 at 14:17
== END ==
PROVIDERS: PCP Internal Medicine; Referring Provider Specialist; Visit Provider Specialist
DX: R97.20 Elevated prostate specific antigen [PSA] (principal); N40.0 Benign prostatic hyperplasia without lower urinary tract symptoms
CPT/HCPCS: 72197

== ENCOUNTER → 2022-04-01 13:05 | Outpatient (CLI) | payer OTHER, SELFPAY ==
[2022-04-01 19:57] LABS: HEMOLYSIS < 15 (0-50); Iron 93 ug/dL (49-181)
[2022-04-01 20:15] LABS: Percent Iron Saturation 24 % (20-50); Total Iron Binding Capacity 386 ug/dL (261-462); Transferrin 282 mg/dL (206-381)
== END ==
PROVIDERS: PCP Internal Medicine; Referring Provider Specialist; Visit Provider Internal Medicine
DX: E61.1 Iron deficiency (principal)
CPT/HCPCS: 83540; 83550

== ENCOUNTER → 2022-10-15 10:52 | Outpatient (CLI) | payer OTHER, SELFPAY ==
[2022-10-19 07:39] LABS: PSA Free % 10.8 % (.); PSA, Total 9.5 ng/mL (0.0-4.0)
== END ==
PROVIDERS: PCP Internal Medicine; Visit Provider Specialist
DX: N13.8 Other obstructive and reflux uropathy (principal); N40.1 Benign prostatic hyperplasia with lower urinary tract symptoms; R97.20 Elevated prostate specific antigen [PSA]
CPT/HCPCS: 84153; 84154

== ENCOUNTER → 2023-01-15 11:42 | Outpatient (CLI) | payer OTHER, SELFPAY ==
[2023-01-16 08:36] LABS: PSA Free % 9.6 % (.); PSA, Total 9.7 ng/mL (0.0-4.0)
== END ==
PROVIDERS: Referring Provider Specialist; Visit Provider Specialist
DX: N40.1 Benign prostatic hyperplasia with lower urinary tract symptoms (principal); N13.8 Other obstructive and reflux uropathy; R97.20 Elevated prostate specific antigen [PSA]; I99.9 Unspecified disorder of circulatory system; K55.039 Acute (reversible) ischemia of large intestine, extent unspecified; K55.1 Chronic vascular disorders of intestine
CPT/HCPCS: 36415; 84153; 84154; 99215

== ENCOUNTER → 2023-01-29 12:06 | Outpatient (CLI) | payer OTHER, SELFPAY ==
--- NOTE | 2023-01-29 12:07 | DI.MRI.S_ITS ---
PROCEDURE: MR PELIS WO/W CON INDICATIONS: elevated PSA/BPH with LUTS TECHNIQUE: Coronal HASTE, axial T1 FSE with fat saturation, 3-plane nonbreath-hold T2 FSE. After the administration of contrast, dynamic axial, delayed axial and coronal VIBE or 2-D FLASH with fat saturation through the pelvis. Optional diffusion weighted imaging and ADC may be performed. COMPARISON: [facility], MR, MR PELVIS WO/W CON, 03/20/2022, 10:37. FINDINGS: Image quality: Diffusion weighted and dynamic contrast enhanced images are diagnostic. Prostate: Gland size is 3.5 x 4.8 x 5.3 cm; ellipsoid gland volume is 46 mL. Genitourinary system: Bladder wall thickness is normal. Distal ureters are non distended. Bowel and peritoneum: No pathologic free pelvic fluid. Inferior colon and small bowel loops are normal in caliber. Colonic diverticulosis without evidence of diverticulitis. Nodes and vessels: No pelvic or inguinal adenopathy by size criteria. Iliac vessels are normal in caliber. Soft tissues: No inguinal hernias. Tiny umbilical hernia containing fat. Bones: Marrow demonstrates normal overall signal, without lesions to suggest metastases. IMPRESSION: No PI-RADS 3 through 5 lesions. Dictated by: Lucas Pacheco M.D. on 01/29/2023 at 14:20 Approved by: Lucas Pacheco M.D. on 01/29/2023 at 14:28
== END ==
PROVIDERS: Referring Provider Specialist; Visit Provider Specialist
DX: N40.1 Benign prostatic hyperplasia with lower urinary tract symptoms (principal); R97.20 Elevated prostate specific antigen [PSA]; N13.8 Other obstructive and reflux uropathy
CPT/HCPCS: 72197

== ENCOUNTER → 2023-11-02 08:54 | Outpatient (CLI) | payer MEDICARE, SELFPAY ==
[2023-11-02 10:33] LABS: Alanine Aminotransferase 26 IU/L (<50); Albumin 4.5 g/dL (3.5-5.0); Albumin Globulin Ratio 1.5 (1.0-2.8); Alkaline Phosphatase 64 U/L (38-126); Aspartate Aminotransferase 40 IU/L (17-59); BUN Creatinine Ratio 14.9 (6-22); Bilirubin Total 1.2 mg/dL (0.2-1.3); Blood Urea Nitrogen 10 mg/dL (9-20); Calcium 9.3 mg/dL (8.4-10.2); Carbon Dioxide 30 mmol/L (22-32); Chloride 99 mmol/L (98-107); Cholesterol 131 mg/dL (140-199); Estimated Glomerular Filt Rate > 60 mL/min (>60); Globulin 3.1 g/dL (1.7-4.1); Glucose 100 mg/dL (80-110); HDL Cholesterol 86 mg/dL (40-60); HEMOLYSIS < 15 (0-50); LDL Cholesterol Calculated 33 mg/dL (<100); Potassium 4.9 mmol/L (3.4-5.1); Sodium 133 mmol/L (137-145); Total Protein 7.6 g/dL (6.3-8.2); Triglycerides 59 mg/dL (35-150)
[2023-11-05 04:19] LABS: Lipoprotein (a) 59.1 nmol/L (<75.0)
[2023-11-05 09:28] LABS: PSA Free % 8.2 % (.); PSA, Total 12.5 ng/mL (0.0-4.0)
== END ==
LOC: LAB 08:56
PROVIDERS: Specialist; Referring Provider Internal Medicine; Visit Provider Internal Medicine
DX: I25.10 Atherosclerotic heart disease of native coronary artery without angina pectoris (principal); R97.20 Elevated prostate specific antigen [PSA]
CPT/HCPCS: 36415; 80053; 80061; 83695; 84153; 84154

== ENCOUNTER → 2023-12-07 10:27 | Outpatient (CLI) | payer MEDICARE, SELFPAY ==
--- NOTE | 2023-12-07 10:29 | DI.MRI.S_ITS ---
PROCEDURE: MR PELVIC PROSTATE PROTOCOL INDICATIONS: Benign prostatic hyperplasia TECHNIQUE: Coronal HASTE, axial T1 FSE with fat saturation, 3-plane nonbreath-hold T2 FSE. After the administration of contrast, dynamic axial, delayed axial and coronal VIBE or 2-D FLASH with fat saturation through the pelvis. Diffusion weighted imaging and ADC was performed. COMPARISON: None. FINDINGS: Image quality: Diffusion weighted and dynamic contrast enhanced images are diagnostic. Prostate: Gland size is 5.3 x 3.0 x 4.9 cm; ellipsoid gland volume is 40 mL. PSA density of 0.31. There is a peripheral, wedge-shaped enhancement and low level T2 signal in the peripheral zone of the mid gland, without corresponding restricted diffusion. Mild hypertrophy of the transition zone, with encapsulated and partially encapsulated nodules; PI-RADS 1-2. Genitourinary system: Bladder wall thickness is normal. Distal ureters are non distended. Bowel and peritoneum: No pathologic free pelvic fluid. Inferior colon and small bowel loops are normal in caliber. Nodes and vessels: No pelvic or inguinal adenopathy by size criteria. Iliac vessels are normal in caliber. Soft tissues: No inguinal hernias. Bones: Marrow demonstrates normal overall signal, without lesions to suggest metastases. IMPRESSION: Suspected prostatitis. No PI-RADS 3 through 5 lesions. Dictated by: Lucas Pacheco M.D. on 12/07/2023 at 13:37 Approved by: Lucas Pacheco M.D. on 12/07/2023 at 13:40
== END ==
LOC: MRI 10:28
PROVIDERS: Referring Provider Specialist; Visit Provider Specialist
DX: N40.1 Benign prostatic hyperplasia with lower urinary tract symptoms (principal); N13.8 Other obstructive and reflux uropathy; K55.1 Chronic vascular disorders of intestine
CPT/HCPCS: 72197; A9579

== ENCOUNTER → 2024-02-28 13:48 | Outpatient (CLI) | payer MEDICARE, SELFPAY ==
[2024-02-28 16:00] LABS: Influenza A - CEPHEID Flu A NEGATIVE (NEGATIVE); Influenza B - CEPHEID Flu B NEGATIVE (NEGATIVE); Respiratory Syncytial Virus Negative (Negative)
[2024-02-28 16:06] LABS: COVID-19 CEPHEID 4-PLEX PCR Negative (Negative)
== END ==
PROVIDERS: PCP Family Medicine; Visit Provider Registered Nurse
DX: R51.9 Headache, unspecified (principal); Z20.822 Contact with and (suspected) exposure to COVID-19; R05.1 Acute cough
CPT/HCPCS: 0241U

== ENCOUNTER → 2024-03-03 07:37 | Outpatient (CLI) | payer MEDICARE, SELFPAY ==
--- NOTE | 2024-03-03 | DI.CT.S_ITS ---
PROCEDURE: CT ANGIO HEAD AND NECK INDICATIONS: coronary artery disease TECHNIQUE: After the administration of intravenous contrast, 1 mm thick sections acquired from the aortic arch through the [place] of [place]. 3-dimensional axjprop-mzocgpcys-lqjuznwlck (MIP) and/or volume rendering reformats were acquired of the central intracranial vasculature and neck separately. For radiation dose reduction, the following was used: automated exposure control, adjustment of mA and/or kV according to patient size. COMPARISON: None. FINDINGS: Image quality: Diagnostic. BRAIN: CSF spaces: Ventricles are normal in size and shape. Basal cisterns are patent. No extra-axial fluid collections. Brain: No significant abnormality of the brain can be seen. Skull and face: Calvarium and facial bones appear intact, without suspicious lesions. Bilateral lens replacement. Sinuses: Sinuses and mastoids are clear. HEAD CT ANGIOGRAPHY: Anterior circulation: Intracranial internal carotid arteries are normal in size and flow. The flow within the paired anterior cerebral arteries is normal and symmetric. The flow within the middle cerebral arteries is normal and symmetric. The anterior communicating artery is not aneurysmal. No aneurysms are seen. 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 Normal appearing basilar artery. Flow within the posterior cerebral arteries is normal and symmetric. No aneurysms are seen. NECK CT ANGIOGRAPHY: Carotid system: The great vessels demonstrate a conventional anatomy as they arise from the aortic arch. There is moderate grade stenosis at the origin of the brachycephalic artery secondary to thick arthrosclerotic calcifications. There are calcifications along the course of the both common carotid arteries without significant luminal stenosis. There are calcified arthrosclerotic plaques at the origin of the left common carotid artery and left subclavian artery without significant luminal stenosis. Calcified arthrosclerotic plaques within both subclavian arteries without significant luminal stenosis. There are calcified arthrosclerotic plaques at the cavernous and supraclinoid segments of the internal carotid artery without significant luminal stenosis. There is approximately 84 percent luminal stenosis at the bifurcation secondary to thick calcified arthrosclerotic calcifications. There is no stenosis at the right bifurcation. Posterior circulation: he left vertebral artery is occluded at the level of T2 and reconstitutes at the level of C3. The left vertebral artery is patent . Soft tissues: Bilateral lens replacement. There is a 0.6 cm nodule within the left thyroid lobe. Bones: No suspicious bony lesions. Visualized cervical spine appears normally aligned. Multilevel degenerative disc disease throughout cervical spine. IMPRESSION: 1. There is approximately 84 percent luminal stenosis of the left internal carotid artery just superior to the bifurcation. 2. 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 3. 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 4. There is a 0.6 cm nodule within the left thyroid lobe. Consider a thyroid ultrasound for further characterization on a nonemergent basis. Any quantitative measurements of stenosis were performed using NASCET criteria. Dictated by: Fredrick Connolly M.D. on 03/03/2024 at 11:42 Approved by: Fredrick Connolly M.D. on 03/03/2024 at 12:32
[2024-03-03 08:04] LABS: Estimated Glomerular Filt Rate > 60 mL/min (>60)
== END ==
PROVIDERS: Internal Medicine; PCP Family Medicine; Referring Provider Family Medicine; Visit Provider Family Medicine
DX: I70.208 Unspecified atherosclerosis of native arteries of extremities, other extremity (principal); I65.22 Occlusion and stenosis of left carotid artery; I65.02 Occlusion and stenosis of left vertebral artery; E04.1 Nontoxic single thyroid nodule
CPT/HCPCS: 36415; 70496; 70498; 82565; Q9967

== ENCOUNTER → 2024-10-31 14:31 | Outpatient (CLI) | payer MEDICARE, SELFPAY ==
[2024-10-31 16:02] LABS: Prostate Specific Antigen 12.9 ng/mL (0.10-4.00)
== END ==
PROVIDERS: Urology; PCP Family Medicine; Referring Provider Family Medicine; Visit Provider Family Medicine
DX: N40.1 Benign prostatic hyperplasia with lower urinary tract symptoms (principal); N13.8 Other obstructive and reflux uropathy; R97.20 Elevated prostate specific antigen [PSA]
CPT/HCPCS: 36415; 84153

== ENCOUNTER 2024-12-26 21:48 | Emergency (ER) | payer OTHER, MEDICARE, SELFPAY ==
[2024-12-26 21:52] VITALS: BP 136/64; PULSE 56; RESP 18; TEMP 36.6; O2SAT 96; BMI 25.3
== END 2024-12-27 00:36 | disposition left against medical advice (07) ==
PROVIDERS: Emergency Provider Emergency Medicine
DX: Z53.21 Procedure and treatment not carried out due to patient leaving prior to being seen by health care provider (principal)
CPT/HCPCS: 99281